=== PATIENT | female | born 1950 | race Caucasian/White ===

== ENCOUNTER → 2017-02-12 10:24 | Outpatient (CLI) | payer MEDICARE, OTHER, SELFPAY ==
[2017-02-12 11:01] LABS: Creatinine, Serum 0.64 mg/dL (0.55-1.02); EST Glomerular Filtration Rate 98 mL/min (>60); Est Glom Filt Rate - Afr Amer 118 mL/min (>60)
[2017-02-12 11:11] LABS: 24HR. UA Prot. Total Volume 3100 mL; Urine Protein (24 Hour) < 6.0 mg/dL (<11.9)
[2017-02-12 11:13] LABS: Creat.Clear Total Volume 3100 mL; Creatinine Clearance 101 ml/min (100-200); Creatinine Serum Creat 0.6 mg/dL (0.6-1.0); Creatinine Urine 30.1 mg/dL (NO RANGE EST.); EST Glomerular Filtration Rate 98 mL/min (>60); Est Glom Filt Rate - Afr Amer 118 mL/min (>60)
[2017-02-12 11:15] LABS: 24 Hour Urine Protein < 5.0 mg/24HR (<150 MG/24HR)
== END | disposition home or self-care (01) ==
DX: Z52.4 Kidney donor (principal)
CPT/HCPCS: 82565; 82575; 84156

== ENCOUNTER → 2018-01-05 13:23 | Outpatient (CLI) | payer OTHER, SELFPAY ==
--- NOTE | 2018-01-05 13:28 | MRI_ITS ---
STUDY: MRI RIGHT SHOULDER REASON FOR EXAM: Female, 67 years old. Fall on 09/12/2017. Shoulder pain. TECHNIQUE: Standardized fat and water weighted pulse sequences were obtained in all 3 orthogonal planes. COMPARISON: Right shoulder radiograph: 09/11/2017. FINDINGS: There is demonstrated a complete tear of the supraspinatus tendon with about 2 cm tendon retraction and with moderately large amount of edema fluid in the defect. There is infraspinatus tendinosis with tendon attrition, but without a demonstrated infraspinatus tendon tear. There is subscapularis tendinosis with tendon thickening, but without a demonstrated tendon tear. Normal teres minor tendon. There is a moderate volume joint effusion of the glenohumeral joint. There are cortical erosions and subchondral cysts of the humeral head at the insertion of the supraspinatus tendon. Normal biceps labral complex. There is tendinosis with thickening of the biceps tendon, but without a demonstrated tear. There is increased fluid in the biceps tendon sheath. Normal labrum. Normal rotator interval. 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 There is a Type II morphology (curved), with a neutral orientation. There is moderate fluid distention of the subacromial bursa, consistent with moderate subacromial-subdeltoid bursitis. Normal quadrilateral space. There is fluid in the axillary space There is mild deltoid muscular atrophy. There is mild trapezius muscular atrophy. MRI/Upper Ext Joint Only(Routine) IMPRESSION: 1. Complete supraspinatus tendon tear with muscle retraction. 2. Infraspinatus and subscapularis tendinosis. 3. Moderate volume joint effusion. 4. Possible biceps tendinosis with increased fluid of the tendon sheath. 5. 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 Electronically Signed: Alex Trujillo MD at 9:09 EDT Tel , Service support ,
== END ==
PROVIDERS: Family Provider Family Medicine; PCP Family Medicine; Visit Provider Orthopaedic Surgery
DX: S43.491D Other sprain of right shoulder joint, subsequent encounter (principal)
CPT/HCPCS: 73221

== ENCOUNTER 2018-02-16 07:00 | Day surgery (SDC) | payer MEDICARE, OTHER, SELFPAY ==
--- NOTE | 2018-02-16 | COLBX_PTH ---
PATIENT: PERLA PANTOJA LOC: EN U#:[id number] AGE/SX: 67/F ROOM: RE02/16/[address]: Dr. Kudleep Sung MD : 1950 BED: DIS: 02/16/2018 SPEC #: [id number] RECD: 02/16/18 10:49 STATUS: JAZLYN STONEAna Paula #: [id number] JOSÉ: 02/16/18 00:[address]: Kuldeep Sung DEPT: SURGICAL PATHOLOGY RECD BY: Aaron Mcgowan ENTERED: 02/16/18 12:49 SP TYPE: COLON BX OTHR DR: Dr. Sven Sung III, MD Tissues: Cecum, NOS Procedures: Surgery Specimen Level IV HEADER OPERATION: Colonoscopy PRE-OP DIAGNOSIS: Screening TISSUE SUBMITTED: Cecal polyp biopsy MICROSCOPIC DIAGNOSIS Cecal polyp, biopsy: Fragments of colonic mucosa, no pathologic diagnosis. SJ:curry 02/19/18 MICROSCOPIC DESCRIPTION Slides are reviewed. GROSS DESCRIPTION Received in fixative is one container labeled with the patient's name and designated cecal polyp. The specimen consists of three irregular fragments of light garcia soft tissue that in aggregate measure 0.7 x 0.3 x 0.1 cm. The specimen is totally submitted in one cassette. / AM:curry 02/16/18 TC:4 CPT: 22686
[2018-02-16 07:43] VITALS: BP 113/65; PULSE 79; RESP 14; TEMP 36.4; O2SAT 98; BMI 25.5
[2018-02-16 08:25] VITALS: BP 113/65; BP 130/85; PULSE 80; RESP 18; TEMP 36.8; O2SAT 99
--- NOTE | 2018-02-16 08:25 | PCM.OPRPT ---
Report of Operation Date of Procedure: 02/16/18 Pre-Operative Diagnosis: Screening for intestinal cancer Post-Operative Diagnosis: 6 mm sessile polyp of the cecum Surgery/Procedure Performed:: Colonoscopy with cold forcep polypectomy biopsy Description of Surgical Findings:: Timeout and informed consent was obtained. 67-year-old female was taken to the endoscopy suite. She was placed in a left lateral decubitus position. She underwent monitored anesthesia care. The patient was taken to the endoscopy room. She was placed in left lateral decubitus position. Monitored anesthesia care was provided. Digital rectal exam performed. Normal anal tone. Moderate internal hemorrhoids. The scope was advanced to a tortuous sigmoid colon was then advanced through the transverse colon and with transabdominal pressure to the cecum. Bowel prep was good there was some liquid stool throughout but that could be aspirated. A 6 mm sessile polyp the cecum was identified and cold forceps were used to sample and eradicate this lesion. Hemostasis was intact. The scope was carefully withdrawn from the ascending transverse descending and sigmoid colon. Tortuosity of the sigmoid was noted. Some scattered diverticulosis. No active disease. The scope was withdrawn to the rectum retroflex the anorectal verge inspected. Grade 2 internal hemorrhoidal changes noted. No active bleeding. The scope was placed back in antegrade viewing position. Excess fluid and air was aspirated free the procedure completed with the patient tolerating it well. Impression Small sessile polyp of the cecum. Pathology pending. Minimal scattered sigmoid diverticulosis with tortuosity of the sigmoid. Internal hemorrhoids The patient has not had a previous colonoscopy. Next colonoscopy recommended in 5 years pending pathology. Medications were given and scope was inserted at 0804. The cecum was reached at 0812. Procedure was completed at 0822. Cc: Dr. Sven Sung, III Kuldeep Sung M.D., F.A.C.S. Type of Anesthesia:: MAC
[2018-02-16 08:30] VITALS: BP 113/65; BP 124/81; PULSE 74; RESP 18; O2SAT 99
[2018-02-16 08:35] VITALS: BP 113/65; BP 128/87; PULSE 73; RESP 18; O2SAT 99
[2018-02-16 08:40] VITALS: BP 113/65; BP 138/85; PULSE 68; RESP 16; TEMP 35.7; O2SAT 100
[2018-02-16 09:22] VITALS: BP 113/65
== END 2018-02-16 09:23 | disposition home or self-care (01) ==
LOC: EN 07:01 → AC 07:02
PROVIDERS: Family Provider Family Medicine; PCP Family Medicine; Visit Provider Surgery
PROC: 0DJD8ZZ Inspection of Lower Intestinal Tract, Via Natural or Artificial Opening Endoscopic (ICD-10-PCS; CPT 45378; principal; 2018-02-16 07:55)
DX: Z12.11 Encounter for screening for malignant neoplasm of colon (principal); D12.0 Benign neoplasm of cecum; K57.30 Diverticulosis of large intestine without perforation or abscess without bleeding; K56.2 Volvulus; K64.1 Second degree hemorrhoids; K80.20 Calculus of gallbladder without cholecystitis without obstruction; Z79.82 Long term (current) use of aspirin
CPT/HCPCS: 45380; 88305; J7120

== ENCOUNTER 2018-02-19 07:53 | Day surgery (SDC) | payer MEDICARE, OTHER, SELFPAY ==
--- NOTE | 2018-02-16 07:20 | EKG12_ITS ---
Test Reason : PRE OP Blood Pressure : / mmHG Vent. Rate : 088 BPM Atrial Rate : 088 BPM P-R Int : 152 ms QRS Dur : 088 ms QT Int : 376 ms P-R-T Axes : 036 034 -03 degrees QTc Int : 454 ms Normal sinus rhythm ST & T wave abnormality, consider inferior ischemia Abnormal ECG When compared with ECG of 16-FEB-2018 07:34, MANUAL COMPARISON REQUIRED, DATA IS UNCONFIRMED Confirmed by MARSHALL JULIO ([id number]), script editor PREMA FLEMING ([id number]) on 02/20/2018 4:14:36 PM Referred By: Kuldeep Sung Confirmed By:MARSHALL JULIO
[2018-02-16 08:02] LABS: Hematocrit 40.8 % (37-47); Hemoglobin 13.8 g/dl (12.0-15.0); Mean Corp Hgb Conc 33.8 g/gl (32-36); Mean Corpuscular Hgb 29.4 pg (27.0-32.0); Mean Corpuscular Volume 86.8 fL (81-99); Mean Platelet Vol. 10.1 fl (6.2-12.0); Platelet Count 276 K/mm3 (150-450); RBC Distribution Width CV 12.8 % (11.6-14.6); RBC Distribution Width SD 39.5 fl (35.1-43.9); Scan Indicated on CBC? Y/N NO; White Blood Count 4.7 K/mm3 (4.4-11.0)
[2018-02-16 08:03] LABS: BUN 11 mg/dL (7-18); Creatinine, Serum 0.68 mg/dL (0.55-1.02); Glucose 92 mg/dL (74-106)
[2018-02-16 08:04] LABS: Anion Gap 10 (5-15); BUN/Creat Ratio 16.1 RATIO (10-20); Calcium,Total 8.8 mg/dL (8.5-10.1); Chloride 106 mmol/L (98-107); EST Glomerular Filtration Rate 91 mL/min (>60); Est Glom Filt Rate - Afr Amer 110 mL/min (>60); Potassium 3.5 mmol/L (3.5-5.1); Sodium Level 142 mmol/L (136-145)
[2018-02-19] VITALS (11 sets, daily range): BP systolic 82–135; BP diastolic 65–93; PULSE 66–88; RESP 16–18; TEMP 35.8–36.8; O2SAT 93–100; BMI 26.1
--- NOTE | 2018-02-19 | GALL_PTH ---
PATIENT: PERLA PANTOJA [place] [facility] [id number] AGE/SX: 67/F ROOM: RE02/19/[address]: Dr. Kuldeep Sung MD : 1950 BED: DIS: 02/19/2018 SPEC #: [id number] RECD: 02/19/18 14:02 STATUS: JAZLYN CANDY #: [id number] JOSÉ: 02/19/18 00:[address]: Kuldeep Sung DEPT: SURGICAL PATHOLOGY RECD BY: Erwin Fuentes ENTERED: 02/19/18 14:02 SP TYPE: VERENA SHEN DR: Dr. Sven Sung III, MD Tissues: Gallbladder, NOS Procedures: Surgery Specimen Level III HEADER OPERATION: Laparoscopic, cholecystectomy with IOC PRE-OP DIAGNOSIS: Calculus of gallbladder TISSUE SUBMITTED: Gallbladder MICROSCOPIC DIAGNOSIS Gallbladder: Mild chronic cholecystitis and cholelithiasis. SJ:curry 02/20/18 MICROSCOPIC DESCRIPTION Slides are reviewed. GROSS DESCRIPTION Received is one container labeled with the patient's name and designated gallbladder. The specimen consists of a gallbladder measuring 9 cm in length and up to 3 cm in diameter. The external surface is pink-garcia, smooth and glistening for the most part. Focally it is granular, hemorrhagic and contains cautery artifact. The gallbladder contains green-yellow mucoid bile and one irregular to ovoid block stone measuring 1.2 cm in greatest dimension. The mucosa is bile-stained and without any mass lesions. The gallbladder wall measures 0.1 to 0.3 cm in greatest dimension. Scrap Collector sections from the gallbladder and the cystic duct are submitted in one cassette. / SJ:rg 02/19/18 TC:3 CPT: 17884
[2018-02-19] MEDS: Clindamycin 900 MG/50 ML BAG 75 MG IV (08:46)
--- NOTE | 2018-02-19 08:58 | DCINST_ITS ---
Discharge Diet: Light diet - advance as tolerated - if you have questions about your diet instructions, please talk to you doctor. Discharge Activity: May Not Drive - for 1 week or while taking narcotic pain medicine. May shower in (days): 1 Lifting Restrictions: 10 pounds Call your doctor if your incision/area has: Continuous Slow Oozing, Sudden Increased Bleeding, Increased Pain/ Swelling, Increased Redness, Foul Smelling Discharge Call your doctor if you observe: Fever of 101 or Higher Suture Line Care: Avoid Pulling/Pushing, Avoid Pinching/Bending Additional Dressing/Incision Instructions:: Change or remove dressing in 4 days. Leave steri-strips in place for 1 week. Allergies/Adverse Reactions: Allergies Penicillins Allergy (Verified 01/29/18 14:10) Swelling Sulfa (Sulfonamide Antibiotics) Allergy (Verified 01/29/18 14:10) Swelling Medications to take at Discharge aspirin 81 mg tablet,delayed release 81 mg PO QDAY tab 01/22/18 [place] 37.5 mg PO DAILY 01/29/18 Calcium Carbonate [Calcium] 1,200 mg PO DAILY 01/29/18 Cholecalciferol (Vitamin D3) [Vitamin D3] 6,000 unit PO DAILY 01/29/18 L.acidoph,Paracasei, B.lactis [Probiotic] 1 each PO DAILY 01/29/18 Turmeric Root Extract [Turmeric] 1,053 mg PO DAILY 01/29/18 Hydrocodone Bitart/Apap 5-325 [[place] 5MG-325MG] 1 tablet PO Q6H PRN PRN 4 Days # 10 tablet 02/19/18 The following prescriptions were given: Hydrocodone Bitart/Apap 5-325 [[place] 5MG-325MG] 1 tablet PO Q6H PRN PRN 4 Days # 10 tablet PRN Reason: Pain Primary Care Physician: Sven Sung III, MD [Primary Care Provider] - Please Follow Up With: Kuldeep Sung MD - [phone] When: Call to make an appointment to be seen in about 10 days.
--- NOTE | 2018-02-19 09:30 | RAD_ITS ---
CLINICAL HISTORY: Female, 67 years old. Cholecystectomy PROCEDURE: CHOLANGIOGRAM - intraoperative CONSENT: Obtained SEDATION: General FLUOROSCOPY TIME (if supplied): (0:28) minutes/seconds Placement of the catheter and the procedure were performed by: Dr. Sung TECHNIQUE: (All elements of maximal sterile barrier technique followed, including US elements as applicable) The cystic duct remnant was cannulized. Contrast was then injected. There is normal flow of contrast from the cystic duct into the common bile duct which is normally distended. There is free flow of contrast into the duodenum. No obstruction or extravasation of contrast outside the biliary tree noted. RAD/Cholangiogram/ O R,Initial IMPRESSION: Normal intraoperative cholangiogram Electronically Signed: Baljeet Rodgers MD at 11:49 EDT , Service support ,
[2018-02-19] MEDS: Bupivacaine Mpf 0.5% 30 ML VIAL (10:25)
--- NOTE | 2018-02-19 10:26 | OP.PCM_ITS ---
Problem List (1) Cholelithiasis with chronic cholecystitis Status: Acute Qualifiers: Cholelithiasis location: gallbladder Biliary obstruction: without biliary obstruction Qualified Code(s): K80.10 - Calculus of gallbladder with chronic cholecystitis without obstruction Report of Operation Date of Procedure: 02/19/18 Pre-Operative Diagnosis: Chronic cholecystitis cholelithiasis Post-Operative Diagnosis: Same Surgery/Procedure Performed:: Laparoscopic cholecystectomy with cholangiography Description of Surgical Findings:: Timeout and informed consent was obtained. 67-year-old female was taken the operating room. She was placed on the table. She underwent general endotracheal intubation and anesthesia. Clindamycin 900 mg were given intravenously preoperatively. The abdomen was allowed to prepped and draped. 3 minutes of dry time was performed. 0.5% Marcaine was used as a local anesthetic. Throughout the procedure total 30 cc was used. Skin sites were pre -anesthetized. A vertical infraumbilical incision was created holding sutures of 0 Vicryl placed varies needle inserted saline drop test performed the abdomen was insufflated with CO2 to a pressure of 10 mmHg pressure 12 mm trocar inserted, laparoscope inserted no evidence any trocar injuries. The abdomen was superficially inspected. No evidence any superficial gross abnormalities other than the omentum was adherent to the gallbladder. 5 mm trochars were placed in the S epigastric mid abdomen right upper quadrant and verticalization. The gallbladder was partially distracted but then electrocautery hook dissection was required to free the omentum from the gallbladder. There was significant vascularity of the omentum and one area was treated with Hem-o-marion clips and in addition I placed a 0 Vicryl Endoloop to further assure hemostasis. Having done that the gallbladder could be further distracted allowing for blunt dissection at the infundibulum. The infundibular area was fully dissected free until the cystic artery and cystic duct identified. The critical view was achieved. The cystic artery was secured twice proximally once distally with Hem-o-marion clips prior to transecting it. A Hem-o-marion clip was placed on the fundus of the gallbladder incision made there in a clean interim catheter was inserted and secured with a Hem-o-marion clip. Fluoroscopically controlled cholangiograms were obtained. The patient was placed in a steep Trendelenburg position. Multiple different injections were performed. The cystic duct and the common bile duct very low. On one view I felt that I saw a flash of common bile duct Paxil. Despite repositioning and several different views I could not get the proper hepatic duct to fill. I did not want to put excess pressure on the syringe and potentially create pancreatitis. The anatomy was reviewed I felt was correcting this point I elected to proceed. The cholangiogram catheter was removed. A Hem-o-marion clip was placed on the cystic duct stump prior to transecting it. I now only had the gallbladder to dissect free. That was performed with electrocautery. Right at the dome of the liver however being immediately adjacent to the gallbladder immediately got into a superficial venous vessel of the liver. Electrocautery would not stop the flow. I used the gallbladder to provide pressure. We set up the argon beam. The argon beam was utilized and actually several different applications of the argon beam at a setting of 60 was required to obtain hemostasis. I felt that he had full hemostasis. The right upper quadrant was irrigated and aspirated free of excess fluid. Total blood loss likely 20 cc. This point I elected to place FloSeal and fibula are in the base of the liver resection. The gallbladder had been completely freed was in a retrieval bag. I removed the gallbladder and then we allowed the abdomen to deflate for 3 minutes. We reinflated the abdomen and again inspected the liver bed area was noted to be completely hemostatic. The gallbladder is now exited the umbilicus. The remaining trochars removed under visualization. The abdomen was allowed to deflate of CO2. The fascia at the umbilicus approximated interrupted 0 Vicryl figure 8 suture. Skin edges approximated with interrupted 4 Monocryl subdermal stitches. Steri-Strips Telfa and OpSite dressings applied. Sponge instrument and needle counts were reported to the surgeon to be correct. Blood loss 20 cc. She tolerated procedure well taken to the recovery area in sagittal condition without apparent complication. Specimens gallbladder. Drains none. Complications none. Kuldeep Sung M.D., F.A.C.S.
[2018-02-19] MEDS: proMETHazine 25 MG/ML Syringe 12.5 MG IV (10:50)
[2018-02-19] MEDS: HYDROcodone Bitartrate/Apap 5/325 Tablet PO (13:02)
== END 2018-02-19 14:57 | disposition home or self-care (01) ==
LOC: SDC 07:54 → AC 07:55
PROVIDERS: Family Provider Family Medicine; PCP Family Medicine; Visit Provider Surgery
PROC: (CPT 47610; principal; 2018-02-19 09:00)
DX: K80.10 Calculus of gallbladder with chronic cholecystitis without obstruction (principal); G25.81 Restless legs syndrome; Z86.2 Personal history of diseases of the blood and blood-forming organs and certain disorders involving the immune mechanism; Z78.0 Asymptomatic menopausal state; Z79.82 Long term (current) use of aspirin
CPT/HCPCS: 00790; 47563; 74300; 76000; 80048; 85027; 88304; 93005; J7120; J2405

== ENCOUNTER 2018-06-18 05:51 | Day surgery (SDC) | payer OTHER, MEDICARE, SELFPAY ==
[2018-06-18] VITALS (7 sets, daily range): BP systolic 126–140; BP diastolic 81–96; PULSE 64–74; RESP 16–18; TEMP 36.1–36.4; O2SAT 96–99; BMI 24.9
[2018-06-18] MEDS: Cefazolin 1 GM/50 ML BAG IV (07:33)
--- NOTE | 2018-06-18 09:09 | PCM.OP.BLANK ---
Operative Report Date of Procedure: 06/18/18 Preoperative diagnosis: Right shoulder rotator cuff tear, impingement syndrome, biceps tendinitis Postoperative diagnosis: Same Title of operation: Right shoulder diagnostic video arthroscopy, biceps tenotomy, arthroscopic subacromial decompression, arthroscopic rotator cuff repair Surgeon: Dr. Alcon Faustin Felt Hat Mellowing Machine Operator: Nita Oliveira PA-C Anesthesia: General, planned interscalene nerve block postoperatively Anesthesia provider Dr. Diamond Indications for surgery patient injured her shoulder at work. Diagnosed with rotator cuff tear, impingement, biceps tendinitis. She failed conservative measures. She wished to have right shoulder surgery. Findings: Patient had rotator cuff tear of the supraspinatus tendon. Approximately 70% of the biceps long head was torn. Also type II acromion. She underwent appropriate treatment. We used Arthrex speed bridge technique to repair the rotator cuff tendons. restaurant assistant was utilized throughout the entire procedure. Help with patient positioning, holding of the limb holding of retractors exposure throughout. She help with placement of anchors and sutures. She helped with wound closure bandage application, UltraSling application. Without neurosurgical physician assistant surgical time would have been increased, surgical outcome could have been less optimal Procedure: Patient was taken to the OR and transferred to the OR table. Neptali beachchair positioner was utilized. Appropriate timeouts performed. She was placed under general anesthetic. Ancef given preoperatively. CASSIDY hose and SCDs on the legs. Right shoulder and upper extremity were prepped padded draped in usual orthopedic sterile fashion for the procedure. We used lidocaine with epinephrine to anesthetize the subacromial space as well as proposed portals. Posterior portal was taken through skin with a knife. Dull trocar took us into the joint while the virtual customer assistant placed traction on the humeral head. We identified rotator cuff tear. We identified significant biceps tendinitis. Some arthritis. Some synovitis. Anterior portal was established with an inside out technique. We probed the biceps and found it nearly completely torn. We used a biter and shaver to perform a biceps tenotomy. We lightly debrided the shoulder joint. We entered the subacromial space after taking multiple pictures in the joint. Lateral portal thus established. We performed a acromioplasty by removing the tissue off the inferior aspect of the acromion with a shaver and ArthroCare wand. Bursal tissue was removed from about the region. Bur was used to perform an acromioplasty from the anterior lateral corner to the AC joint. Adequate bone was removed to create a flat, type I acromion from the anterior lateral corner to the AC joint. This was confirmed with pictures. We placed a hard cannula through the lateral portal. We used a shaver as well as ArthroCare wand to debride the bursal tissue as needed. We freshened the leading edge of the tendon with a shaver. We now having adequate visualization applied a suture anchor through an accessory superior portal x2 at the anterior and then posterior portion of the humeral head just off the articular cartilage with a fiber tape suture attached to each anchor. Ultimately a blue and white suture from each anchor was brought out the lateral portal, placed through a another swivel lock anchor and then down anterior into the more lateral humeral head region in line with the other implant. And we did this step repairing the tendon nicely to the bone. We could internally and externally rotate the shoulder showing a nice repair to the bone. No impingement was noted. Sutures were cut off given with the implants. Extra fluid was removed from the shoulder. Portals closed with simple sutures. Sterile bandage and UltraSling applied by the virtual customer assistant. Patient was awoken from her anesthetic transferred back to room bed in recovery room in satisfactory condition. Planned interscalene nerve block there. This note was generated with Vindicia dictation software. It may contain incorrect words, spelling, and punctuation that were not noted in checking the note before signing.
== END 2018-06-18 11:51 | disposition home or self-care (01) ==
LOC: SDC 05:52 → AC 05:53
PROVIDERS: Family Provider Family Medicine; PCP Family Medicine; Visit Provider Orthopaedic Surgery
PROC: (CPT 29827; principal; 2018-06-18 06:55)
DX: S46.011A Strain of muscle(s) and tendon(s) of the rotator cuff of right shoulder, initial encounter (principal); W18.39XA Other fall on same level, initial encounter; Y93.9 Activity, unspecified; Y92.9 Unspecified place or not applicable; Y99.0 Civilian activity done for income or pay; M75.41 Impingement syndrome of right shoulder; M75.21 Bicipital tendinitis, right shoulder; M81.0 Age-related osteoporosis without current pathological fracture; Z87.81 Personal history of (healed) traumatic fracture; Z79.891 Long term (current) use of opiate analgesic; Z79.899 Other long term (current) drug therapy
CPT/HCPCS: 29826; 29827; 29828; 64415; 93005; J7120; J2405

== ENCOUNTER → 2019-01-09 11:25 | Outpatient (CLI) | payer MEDICARE, OTHER, SELFPAY ==
--- NOTE | 2019-01-09 11:29 | BD_ITS ---
STUDY: DUAL ENERGY X-RAY ABSORPTIOMETRY / DXA REASON FOR EXAM: Female, 68 years old. The patient is postmenopausal. Loss of height. TECHNIQUE: Bone Mineral Density (BMD) measurements of lumbar spine and bilateral hips were obtained. COMPARISON: Comparison is made with prior study dated October 17, 2017. FINDINGS: Lumbar Spine (L1-L4): g/cm2 (0.811) / T-score (-3.2) / Z-score (-1.6) Findings are suggestive of osteoporosis with a high fracture risk. Left Femur Total: g/cm2 (0.740) / T-score (-2.1) / Z-score (-0.7) Left Femoral Neck: g/cm2 (0.688) / T-score (-2.5) / Z-score (-0.9) Right Femur Total: g/cm2 (0.728) / T-score (-2.2) / Z-score (-0.8) Right Femoral Neck: g/cm2 (0.705) / T-score (-2.4) / Z-score (-0.7) The T-Scores on the most recent prior examination were: Lumbar Spine (L1-L4): There has been worsening of bone density since the previous examination. Left Femur Total: which represents an improvement of 8.3%. Right Femur Total: which represents a worsening of 1.9%. BD/Dexa Bone Density Study IMPRESSION: The patient is considered osteoporotic as outlined below according to World Carlos Organization (WHO) criteria with a high fracture risk. There has been worsening of bone density since the previous examination. Reference Information: The T-score is the number of standard deviations above or below the standard which is normal for young adults at their peak bone mineral density. The World Health Organization (WHO) interprets the T-scores as follows: Above -1 Normal bone density Between -1 and -2.5 Osteopenia Equal to / or below -2.5 Osteoporosis As a practical clinical guideline, osteopenia may be graded as follows: Mild -1 through -1.5 Moderate -1.6 through -2.0 Severe -2.1 through -2.4 The Z-score is the number of standard deviations above or below age-matched controls. A Z-score of less than -1.5 would be considered abnormal. References: 1. NIH Osteoporosis and Related Bone Diseases http://www.osteo.org 2. International Society for Clinical Densitometry http://www.iscd.org 3. National Osteoporosis Foundation http://www.nof.org Electronically Signed: Dariusz Howard, at 10:49 EDT , Service support ,
--- NOTE | 2019-01-09 11:38 | BI_ITS ---
MAMMOGRAPHY - BILATERAL SCREENING 3-D KIMI SYNTHESIS REASON FOR EXAM: Female, 68 years old. Bilateral Screening 3-D tomosynthesis PERTINENT HISTORY: History of stereotactic biopsy in the . TECHNIQUE: 2-D mammograms and 3-D Kimi synthesis of the breast (s) were performed. CAD was performed. COMPARISON: October 17, 2017, August 05, 2015 FINDINGS: The breast composition is composed of scattered fibroglandular density. Scattered benign calcifications are stable. No dense spiculated masses or suspicious microcalcifications are identified. No architectural distortion is identified. There is no skin thickening or retraction. There has been no significant change since the prior study. BI/SCREENING MAMM (CAD), BILAT IMPRESSION: No mammographic signs of malignancy. Routine yearly mammograms recommended. ASSESSMENT CATEGORY: BIRADS Category 2: Benign. A letter regarding these results will be sent to the patient by the facility within 30 days. FOLLOW UP RECOMMENDATION: Yearly follow up mammogram recommended. (A) Approximately 10% of breast cancers are not detected by mammography. A normal mammogram should not delay biopsy of a clinically suspicious abnormality. Electronically Signed: Harsh Huertas MD at 13:04 EDT , Service support ,
== END ==
PROVIDERS: Family Provider Family Medicine; PCP Family Medicine; Referring Provider Obstetrics & Gynecology; Visit Provider Obstetrics & Gynecology
DX: M85.9 Disorder of bone density and structure, unspecified (principal); Z12.31 Encounter for screening mammogram for malignant neoplasm of breast
CPT/HCPCS: 77063; 77067; 77080

== ENCOUNTER → 2019-06-27 11:10 | Outpatient (CLI) | payer MEDICARE, OTHER, SELFPAY ==
[2019-06-27 12:42] LABS: Anion Gap 7 (5-15); BUN 12 mg/dL (7-18); BUN/Creat Ratio 17.4 RATIO (10-20); Calcium,Total 9.3 mg/dL (8.5-10.1); Chloride 104 mmol/L (98-107); Creatinine, Serum 0.69 mg/dL (0.55-1.02); EST Glomerular Filtration Rate 90 mL/min (>60); Est Glom Filt Rate - Afr Amer 108 mL/min (>60); Glucose 103 mg/dL (74-106); Potassium 3.4 mmol/L (3.5-5.1); Sodium Level 141 mmol/L (136-145)
== END ==
PROVIDERS: Family Provider Family Medicine; PCP Family Medicine; Visit Provider Nurse Practitioner Family
DX: I10 Essential (primary) hypertension (principal)
CPT/HCPCS: 36415; 80048

== ENCOUNTER → 2019-12-24 08:49 | Outpatient (CLI) | payer MEDICARE, OTHER, SELFPAY ==
[2019-11-29 14:26] VITALS: BMI 25.7
[2019-12-24 10:50] LABS: Absolute Lymphocyte Count 1.33 X10^3/uL (0.83-4.51); Absolute Neutrophil Count 2.2 X10^3/uL (2.0-7.7); Basophil# 0.03 X10^3/uL; Basophil% 0.7 % (0-1); Eosinophil# 0.15 X10^3/uL; Eosinophils% 3.5 % (0-5); Hematocrit 39.4 % (37-47); Hemoglobin 13.1 g/dL (12.0-15.0); Lymphocyte # 1.33 X10^3/ul (4.0); Lymphocyte % 31.1 % (19-41); Mean Corp Hgb Conc 33.2 g/dL (32-36); Mean Corpuscular Hgb 30.3 pg (27.0-32.0); Mean Corpuscular Volume 91.2 fL (81-99); Mean Platelet Vol. 10.1 fl (6.2-12.0); Monocyte# 0.52 X10^3/uL; Monocyte% 12.2 % (0-10); NRBC Flagged by Analyzer 0 % (0-5); Neutrophil # 2.23 X10^3/uL (2.7-7.7); Neutrophil % 52.3 % (47-70); Platelet Count 256 K/mm3 (150-450); RBC Distribution Width CV 12.7 % (11.6-14.6); RBC Distribution Width SD 42.1 fl (35.1-43.9); Red Blood Count 4.32 M/mm3 (4.2-5.4); White Blood Count 4.3 K/mm3 (4.4-11.0)
[2019-12-24 11:12] LABS: BUN 16 mg/dL (7-18); Creatinine, Serum 0.72 mg/dL (0.55-1.02); Glucose 99 mg/dL (74-106)
[2019-12-24 11:13] LABS: Anion Gap 4 (5-15); BUN/Creat Ratio 22.3 RATIO (10-20); Calcium,Total 9.8 mg/dL (8.5-10.1); Chloride 107 mmol/L (98-107); EST Glomerular Filtration Rate 85 mL/min (>60); Est Glom Filt Rate - Afr Amer 103 mL/min (>60); Potassium 3.4 mmol/L (3.5-5.1); Sodium Level 140 mmol/L (136-145); Thyroid Stim Hormone (TSH) 2.71 uIU/mL (0.358-3.74)
== END ==
PROVIDERS: PCP Family Medicine; Visit Provider Internal Medicine Cardiovascular Disease
DX: I10 Essential (primary) hypertension (principal); R55 Syncope and collapse
CPT/HCPCS: 36415; 80048; 83735; 84443; 85025

== ENCOUNTER → 2020-01-06 09:55 | Outpatient (CLI) | payer MEDICARE, OTHER, SELFPAY ==
[2019-11-29 14:26] VITALS: BMI 25.7
--- NOTE | 2020-01-06 09:56 | ECHOD_ITS ---
Reason For Study: Syncope Procedure This was a 2D Doppler, Color Flow transthoracic echocardiogram. Contrast injection was performed. Exam performed in department. Left Ventricle Normal LV size. Left ventricular systolic function is normal. The estimated ejection fraction is 60 %. No regional wall motion abnormalities noted. Right Ventricle Normal RV size. Normal systolic function. Atria Normal left atrium. Normal right atrium. Bubble contrast study negative for right to left interatrial shunt. Mitral Valve Normal mitral valve. Mild (1+) eccentric mitral valve insufficiency. Tricuspid Valve Normal tricuspid valve. Mild (1+) tricuspid valve insufficiency. Pulmonary artery systolic pressure is 30 mmHg. Aortic Valve Trisinus/trileaflet aortic valve. Mild (1+) aortic valve insufficiency. Pulmonic Valve Normal pulmonic valve. Great Vessels Normal aortic root. The pulmonary artery is normal size. Normal inferior vena cava. Pericardium/Pleural No pericardial effusion. Medication 22 gauge I.V. with prn adaptor inserted into right arm. Performed a rapid injection of agitated mix of 9 cc saline and 1cc air to assess for atrial septal defect. MMode/2D Measurements & Calculations LVIDd: 4.5 cm IVSd: 0.90 cm Ao root diam: 3.7 cm LVIDs: 2.9 cm LVPWd: 1.1 cm RVDd: 3.2 cm FS: 36.6 % LAV(MOD-bp): 47.9 ml LA A4 area: 15.6 cm2 RA A4 area: 13.3 cm2 LAV(MOD-bp) Indexed: 28.7 ml/m2 LAV(MOD-sp2): 60.3 ml LAV(MOD-sp4): 37.8 ml Time Measurements MV dec time: 0.27 sec Doppler Measurements & Calculations MV E max severo: 58.8 cm/sec Lat Peak E' Severo: 6.4 cm/sec Med Peak E' Severo: 5.2 cm/sec MV A max severo: 82.0 cm/sec E/E' lat: 9.2 E/E' med: 11.2 MV E/A: 0.72 MV V2 max: 88.6 cm/sec MV P1/2t max severo: 68.7 cm/sec Ao V2 max: 91.9 cm/sec MV max P.1 mmHg MV P1/2t: 73.2 msec Ao max P.4 mmHg MV V2 mean: 47.1 cm/sec MV dec slope: 274.7 cm/sec2 MV mean P.0 mmHg MV V2 VTI: 24.6 cm MVA(P1/2t): 3.0 cm2 LV V1 max: 85.7 cm/sec PA V2 max: 68.6 cm/sec TR max severo: 249.9 cm/sec LV V1 max P.9 mmHg TR max P.0 mmHg Interpretation Summary Normal LV size. Left ventricular systolic function is normal. The estimated ejection fraction is 60 %. Mild (1+) eccentric mitral valve insufficiency. Mild (1+) aortic valve insufficiency. Bubble contrast study negative for right to left interatrial shunt. Ordering Physician: Souleymane Moreno Referring Physician: Souleymane Moreno Performed By: Masoud Kelly RCS
== END ==
PROVIDERS: PCP Family Medicine; Referring Provider Internal Medicine Cardiovascular Disease; Visit Provider Internal Medicine Cardiovascular Disease
DX: R55 Syncope and collapse (principal)
CPT/HCPCS: 93306; A4216

== ENCOUNTER → 2020-04-20 12:55 | Outpatient (CLI) | payer MEDICARE, OTHER, SELFPAY ==
[2020-04-06 08:08] VITALS: BMI 25.7
--- NOTE | 2020-04-21 13:16 | PFT ---
INTRODUCTION: The patient is a 69-year-old female that presents for pulmonary function studies secondary to a diagnosis of shortness of breath. Respiratory therapy reports good patient effort. Bronchodilators were used during testing. INTERPRETATION: Forced expiration spirometry demonstrates no evidence of a large airways obstructive ventilatory defect. There was no significant response to aerosolized bronchodilators. Spirograms are of good quality and plateau normally. Body plethysmography was performed and reveals lung volumes to be within normal limits. Diffusing capacity by single breath CO is also within normal limits. IMPRESSION: Grossly normal pulmonary function studies.
== END ==
PROVIDERS: PCP Family Medicine; Referring Provider Nurse Practitioner Acute Care; Visit Provider Nurse Practitioner Acute Care
DX: R06.02 Shortness of breath (principal)
CPT/HCPCS: 94060; 94726; 94729

== ENCOUNTER → 2020-05-15 20:34 | Outpatient (CLI) | payer MEDICARE, OTHER, SELFPAY ==
[2019-11-29 14:26] VITALS: BMI 25.7
[2020-05-15] MEDS: Zolpidem Tartrate 5 MG Tablet PO (22:00)
== END ==
PROVIDERS: PCP Family Medicine; Visit Provider Nurse Practitioner Acute Care
DX: G47.33 Obstructive sleep apnea (adult) (pediatric) (principal)
CPT/HCPCS: 95810

== ENCOUNTER 2020-11-02 13:42 | Outpatient (RCR) | payer MEDICARE, OTHER, SELFPAY ==
[2020-07-29 09:50] VITALS: BMI 25.4
== END 2020-11-02 23:59 ==
LOC: IMMUN 13:42
PROVIDERS: PCP Family Medicine; Visit Provider Family Medicine
DX: Z23 Encounter for immunization (principal)
CPT/HCPCS: 0011A; 0012A; 91301

== ENCOUNTER → 2020-11-18 10:19 | Outpatient (CLI) | payer MEDICARE, OTHER, SELFPAY ==
[2020-11-18 07:28] VITALS: BMI 25.7
[2020-11-18 11:34] LABS: Absolute Lymphocyte Count 1.14 X10^3/uL (0.83-4.51); Absolute Neutrophil Count 2.2 X10^3/uL (2.0-7.7); Basophil# 0.04 X10^3/uL; Eosinophil# 0.09 X10^3/uL; Eosinophils% 2.3 % (0-5); Hemoglobin 13.2 g/dL (12.0-15.0); Lymphocyte # 1.14 X10^3/ul (4.0); Lymphocyte % 28.7 % (19-41); Mean Corpuscular Hgb 29.3 pg (27.0-32.0); Mean Corpuscular Volume 88.9 fL (81-99); Mean Platelet Vol. 10.6 fl (6.2-12.0); Monocyte# 0.46 X10^3/uL; Monocyte% 11.6 % (0-10); NRBC Flagged by Analyzer 0 % (0-5); Neutrophil # 2.23 X10^3/uL (2.7-7.7); Neutrophil % 56.1 % (47-70); Platelet Count 289 K/mm3 (150-450); RBC Distribution Width CV 12.4 % (11.6-14.6); RBC Distribution Width SD 40.3 fl (35.1-43.9)
[2020-11-18 12:54] LABS: AST(SGOT) 34 U/L (15-37); Alanine Aminotransfer ALT/SGPT 46 U/L (13-56); Albumin, Serum 3.7 g/dL (3.2-5.0); Alkaline Phosphatase 103 U/L (45-117); Anion Gap 6 (5-15); BUN 16 mg/dL (7-18); BUN/Creat Ratio 25.6 RATIO (10-20); Calcium,Total 8.5 mg/dL (8.5-10.1); Chloride 105 mmol/L (98-107); Cholesterol 183 mg/dL (200); Creatinine, Serum 0.62 mg/dL (0.55-1.02); EST Glomerular Filtration Rate 100 mL/min (>60); Est Glom Filt Rate - Afr Amer 121 mL/min (>60); Glucose 92 mg/dL (74-106); High Density Lipoprotein 58 mg/dL; Potassium 3.5 mmol/L (3.5-5.1); Protein, Total 6.7 g/dL (6.4-8.2); Sodium Level 139 mmol/L (136-145); Thyroid Stim Hormone (TSH) 1.18 uIU/mL (0.358-3.74); Triglycerides 82 mg/dL; Very Low Density Lipoprotein 16 mg/dL (5-40)
== END ==
PROVIDERS: PCP Family Medicine; Referring Provider Internal Medicine Cardiovascular Disease; Visit Provider Internal Medicine Cardiovascular Disease
DX: I10 Essential (primary) hypertension (principal); R06.02 Shortness of breath; R00.2 Palpitations
CPT/HCPCS: 36415; 80048; 80061; 80076; 84443; 85025

== ENCOUNTER 2021-01-27 06:20 | Day surgery (SDC) | payer MEDICARE, OTHER, SELFPAY ==
[2020-11-18 07:28] VITALS: BMI 25.7
--- NOTE | 2021-01-20 13:03 | EKG12_ITS ---
Test Reason : PREOP Blood Pressure : / mmHG Vent. Rate : 060 BPM Atrial Rate : 060 BPM P-R Int : 156 ms QRS Dur : 090 ms QT Int : 444 ms P-R-T Axes : 044 041 008 degrees QTc Int : 444 ms Normal sinus rhythm Normal ECG Confirmed by KIMMY MILLAN, ANGELICA ([id number]), makeup editor MIRA LIU ([id number]) on 01/21/2021 9:13:52 AM Referred By: Alcon Faustin Confirmed By:ANGELICA ONEAL MD
[2021-01-20 14:00] LABS: Anion Gap 3 (5-15); BUN 19 mg/dL (7-18); BUN/Creat Ratio 33.4 RATIO (10-20); Chloride 105 mmol/L (98-107); Creatinine, Serum 0.57 mg/dL (0.55-1.02); EST Glomerular Filtration Rate 111 mL/min (>60); Est Glom Filt Rate - Afr Amer 135 mL/min (>60); Glucose 88 mg/dL (74-106); Potassium 3.9 mmol/L (3.5-5.1); Sodium Level 138 mmol/L (136-145)
--- NOTE | 2021-01-22 11:22 | NURSING ---
PT HAS HAD BOTH MODERNA VACCINES, LAST DOSE 12/01/20
[2021-01-27] VITALS (9 sets, daily range): BP systolic 115–134; BP diastolic 74–84; PULSE 58–79; RESP 16; TEMP 36.1–36.9; O2SAT 94–100; BMI 26.2
[2021-01-27] MEDS: Lactated Ringers 1,000 ML 100 ML IV ×2 (07:06→08:45)
[2021-01-27] MEDS: Lidocaine 1% /Epi 1:100 (20ml) 20 ML Vial (07:40)
[2021-01-27] MEDS: Epinephrine (1 mg/ml) 1 MG/ML VIAL (07:40)
[2021-01-27] MEDS: morphine PF (epidural) 5 MG/10 ML Vial (08:02)
--- NOTE | 2021-01-27 08:06 | PCM.OP.PRO ---
Procedure Report Date of Procedure: 01/27/21 Preoperative diagnosis: Right knee medial meniscus tear, arthritis Postoperative diagnosis : Right knee complex tear posterior horn medial meniscus with mild arthritis Procedure: Diagnostic video arthroscopy, right knee, partial medial meniscectomy Surgeon: Dr. Alcon Faustin Anesthesia: General Dr. Chai CRNA as well Complications: None EBL: Less than 5 cc Indications for surgery: Patient is a 70-year-old female with a long-standing history of right knee pain. Patient failed adequate nonoperative treatment for the knee pain. MRI findings discussed with patient. Due to persistent symptoms they wish to proceed with knee arthroscopy. Also complained of lack of full knee flexion and did wish to have knee manipulated into more flexion intraoperatively Findings: Intraoperative findings were consistent with her preoperative history, physical, radiographic exam. Details of procedure: Patient was taken to the OR transfer to the OR table. Nonoperative limb was appropriately padded, CASSIDY hose and SCD applied. Patient was placed under the anesthetic agent. Operative knee was examined. It was placed in the full flexion without difficulty. no signs of infection. Operative upper thigh was well-padded and ultimately placed in a well-padded thigh guzmán. Operative lower extremity was prepped and draped in usual orthopedic sterile fashion for the procedure. Local anesthetic agent was sterilely injected into the proposed arthroscopic portals. Lateral portal was established with a knife. Took us through skin only. Dull trocar took us into the joint. The scope was placed through the lateral portal. Medial portal and ultimately established using a spinal needle followed by a knife through skin, followed by a dull trocar into the joint. Probe was placed to the medial portal. Patellofemoral joint: No significant arthritis was noted. Patella tracked nicely. No significant plica noted. Medial and lateral gutter: No loose bodies or pathology noted. Intercondylar notch: ACL appeared within normal limits. Nice resting tension. No loose bodies or cystic changes noted. Medial compartment: Chondral surfaces showed minimal degenerative changes. No full-thickness cartilage loss. There was a complex tear of the posterior horn of the right knee medial meniscus. This extended from the root to the midportion. Undersurface tearing as well. Pictures were taken. Partial medial meniscectomy was carried out with a forward biting basket as well as arthroscopic shaver. Stable meniscus segment was maintained Lateral compartment: Chondral surfaces are within normal limits. No obvious lateral meniscus tear noted, and compartment fully probed Posterior medial compartment: No loose bodies or pathology noted. Posterior lateral compartment: No loose bodies or pathology noted. Arthroscopic pictures were taken and saved throughout the procedure. Knee was drained of excess fluid. Arthroscopic instruments were removed. Arthroscopic portals closed with simple sutures of 4-0 nylon. Knee joint injected with a combination of local anesthetic and Duramorph. sterile bandage was applied. Patient was transferred to the room bed and recovery room in satisfactory condition. They will be discharged to home when stable, follow-up in the office in 7-10 days. Patient and the family understand discharge instructions, all of their questions answered. Aspirin 81 mg twice a day will be recommended for postoperative DVT prevention. No preoperative antibiotic was deemed necessary or used This note was generated with [employer] dictation software. It may contain incorrect words, spelling, and punctuation that were not noted in checking the note before signing.
== END 2021-01-27 10:40 | disposition home or self-care (01) ==
LOC: SDC 06:20 → AC 06:20
PROVIDERS: PCP Family Medicine; Referring Provider Orthopaedic Surgery; Visit Provider Orthopaedic Surgery
PROC: (CPT 29870; principal; 2021-01-27 07:10)
DX: S83.231A Complex tear of medial meniscus, current injury, right knee, initial encounter (principal); X58.XXXA Exposure to other specified factors, initial encounter; Y93.9 Activity, unspecified; Y92.9 Unspecified place or not applicable; Y99.9 Unspecified external cause status; M17.11 Unilateral primary osteoarthritis, right knee; I10 Essential (primary) hypertension; E66.3 Overweight; Z68.28 Body mass index [BMI] 28.0-28.9, adult; Z79.899 Other long term (current) drug therapy
CPT/HCPCS: 01400; 29881; 80048; 93005; J7120; J2405

== ENCOUNTER → 2021-07-14 11:29 | Outpatient (CLI) | payer MEDICARE, OTHER, SELFPAY ==
[2021-01-27 06:51] VITALS: BMI 26.2
--- NOTE | 2021-07-14 11:33 | BI_ITS ---
MAMMOGRAPHY - BILATERAL SCREENING REASON FOR EXAM: Female, 71 years old. Routine annual screening examination. PERTINENT HISTORY: Non-contributory. History of prior stereotactic breast biopsy. TECHNIQUE: Digital bilateral breast kimi (3D mammographic acquisition) in the CC and MLO projections. 2-D mediolateral oblique (MLO) and craniocaudad (CC) views of both breasts were obtained. CAD: Full Field Digital Mammography with Computer Added Detection was performed. COMPARISON: Comparison is made with prior study dated 01/09/2019 and 10/17/2017. FINDINGS: Breast Composition: The breasts are heterogeneously dense, which may obscure small masses. There are no dominant masses or suspicious calcifications. No other significant abnormalities are identified. There has been no significant change since the prior study. BI/SCRN MAMM (CAD)W/KIMI BILAT IMPRESSION: Stable bilateral screening mammogram. Yearly follow-up mammogram recommended. (A) ASSESSMENT CATEGORY: BIRADS Category 1: Negative. A letter regarding these results will be sent to the patient by the facility within 30 days. Approximately 10% of breast cancers are not detected by mammography. A normal mammogram should not delay biopsy of a clinically suspicious abnormality. [id number] Electronically Signed: Dariusz Howard MD at 12:35 EDT , Service support ,
--- NOTE | 2021-07-14 11:35 | BD_ITS ---
STUDY: DUAL ENERGY X-RAY ABSORPTIOMETRY / DXA REASON FOR EXAM: Female, 71 years old. M81.0 TECHNIQUE: Bone Mineral Density (BMD) measurements of lumbar spine and bilateral hips were obtained. COMPARISON: Comparison is made with prior examination dated 01/09/2019. FINDINGS: Lumbar Spine (L1-L4): g/cm2 (0.701) / T-score (-3.6) / Z-score (-1.3) Findings are suggestive of osteoporosis with a high fracture risk. Left Femur Total: g/cm2 (0.681) / T-score (-2.1) / Z-score (-0.5) Left Femoral Neck: g/cm2 (0.530) / T-score (-2.9) / Z-score (-1.0) Right Femur Total: g/cm2 (0.668) / T-score (-2.2) / Z-score (-0.6) Right Femoral Neck: g/cm2 (0.5-1) / T-score (-3.0) / Z-score (-1.0) The T-Scores on the most recent prior examination were: Lumbar Spine (L1-L4): There has been worsening of bone density since the previous examination. Left Femur Total: which represents a worsening of 0.2%. Right Femur Total: which represents a worsening of 0.3%. BD/Dexa Bone Density Study IMPRESSION: The patient is considered osteoporotic as outlined below according to World Carlos Organization (WHO) criteria with a high fracture risk. There has been worsening of bone density since the previous examination. Reference Information: The T-score is the number of standard deviations above or below the standard which is normal for young adults at their peak bone mineral density. The World Health Organization (WHO) interprets the T-scores as follows: Above -1 Normal bone density Between -1 and -2.5 Osteopenia Equal to / or below -2.5 Osteoporosis As a practical clinical guideline, osteopenia may be graded as follows: Mild -1 through -1.5 Moderate -1.6 through -2.0 Severe -2.1 through -2.4 The Z-score is the number of standard deviations above or below age-matched controls. A Z-score of less than -1.5 would be considered abnormal. References: 1. NIH Osteoporosis and Related Bone Diseases www osteo.org 2. International Society for Clinical Densitometry www iscd.org 3. National Osteoporosis Foundation www nof.org Electronically Signed: Dariusz Howard MD at 15:34 EDT , Service support ,
== END ==
PROVIDERS: PCP Family Medicine; Referring Provider Family Medicine; Visit Provider Family Medicine
DX: M81.0 Age-related osteoporosis without current pathological fracture (principal); Z12.31 Encounter for screening mammogram for malignant neoplasm of breast
CPT/HCPCS: 77063; 77067; 77080

== ENCOUNTER 2021-11-05 10:35 | Outpatient (CLI) | payer MEDICARE, OTHER, SELFPAY ==
[2021-11-05 11:01] VITALS: BP 134/82; PULSE 61; RESP 16; TEMP 36.6; O2SAT 100
[2021-11-05] MEDS: DENOSUMAB 60 MG/ML SC (11:03)
== END 2021-11-05 23:59 | disposition short-term general hospital (02) ==
LOC: MEDOUTP 10:35
PROVIDERS: PCP Family Medicine; Referring Provider Family Medicine; Visit Provider Family Medicine
DX: M81.0 Age-related osteoporosis without current pathological fracture (principal)
CPT/HCPCS: 96372; J0897

== ENCOUNTER → 2022-05-06 | Outpatient (CLI) | payer MEDICARE, OTHER, SELFPAY ==
[2022-05-06 10:38] VITALS: BP 139/78; PULSE 58; RESP 16; TEMP 35.7; O2SAT 99; BMI 23.0
[2022-05-06] MEDS: DENOSUMAB 60 MG/ML SC (10:41)
== END | disposition home or self-care (01) ==
LOC: MEDOUTP 10:31
PROVIDERS: PCP Family Medicine; Referring Provider Family Medicine; Visit Provider Family Medicine
DX: M81.0 Age-related osteoporosis without current pathological fracture (principal)
CPT/HCPCS: 96372; J0897

== ENCOUNTER → 2022-05-16 | Outpatient (CLI) | payer MEDICARE, OTHER, SELFPAY ==
[2022-05-16 13:49] LABS: Absolute Lymphocyte Count 1.16 X10^3/uL (0.83-4.51); Absolute Neutrophil Count 3.9 X10^3/uL (2.0-7.7); Basophil# 0.03 X10^3/uL; Basophil% 0.5 % (0-1); Eosinophil# 0.09 X10^3/uL; Eosinophils% 1.6 % (0-5); Hematocrit 41.4 % (37-47); Hemoglobin 13.5 g/dL (12.0-15.0); Lymphocyte # 1.16 X10^3/ul (0.83-4.51); Lymphocyte % 20.2 % (19-41); Mean Corp Hgb Conc 32.6 g/dL (32-36); Mean Corpuscular Hgb 30.4 pg (27.0-32.0); Mean Corpuscular Volume 93.2 fL (81-99); Monocyte# 0.55 X10^3/uL; Monocyte% 9.6 % (0-10); NRBC Flagged by Analyzer 0 % (0-5); Neutrophil # 3.89 X10^3/uL (2.7-7.7); Neutrophil % 67.8 % (47-70); Platelet Count 286 K/mm3 (150-450); RBC Distribution Width CV 12.9 % (11.6-14.6); RBC Distribution Width SD 43.9 fl (35.1-43.9); Red Blood Count 4.44 M/mm3 (4.2-5.4); White Blood Count 5.7 K/mm3 (4.4-11.0)
[2022-05-16 13:58] LABS: Hemoglobin A1c 5.3 % (3.8-5.6)
[2022-05-16 14:03] LABS: Vitamin D,25 Hydroxy 57.4 ng/mL
[2022-05-16 14:19] LABS: ALB/GLOB Ratio 1.2 RATIO (0.9-2.4); AST(SGOT) 22 U/L (15-37); Alanine Aminotransfer ALT/SGPT 28 U/L (13-56); Albumin, Serum 3.9 g/dL (3.2-5.0); Alkaline Phosphatase 88 U/L (45-117); Anion Gap 3 (5-15); BUN 14 mg/dL (7-18); BUN/Creat Ratio 22.3 RATIO (10-20); Calcium,Total 9.2 mg/dL (8.5-10.1); Chloride 106 mmol/L (98-107); Cholesterol 181 mg/dL (200); Creatinine, Serum 0.63 mg/dL (0.55-1.02); EST Glomerular Filtration Rate 99 mL/min (>60); Est Glom Filt Rate - Afr Amer 120 mL/min (>60); Globulin 3.2 g/dL (2.2-4.2); Glucose 97 mg/dL (74-106); High Density Lipoprotein 59 mg/dL; Potassium 3.6 mmol/L (3.5-5.1); Protein, Total 7.1 g/dL (6.4-8.2); Sodium Level 140 mmol/L (136-145); Triglycerides 88 mg/dL; Very Low Density Lipoprotein 18 mg/dL (5-40)
== END | disposition home or self-care (01) ==
LOC: LAB 13:05
PROVIDERS: PCP Family Medicine; Referring Provider Family Medicine; Visit Provider Family Medicine
DX: Z00.00 Encounter for general adult medical examination without abnormal findings (principal); E55.9 Vitamin D deficiency, unspecified; R73.02 Impaired glucose tolerance (oral)
CPT/HCPCS: 36415; 80053; 80061; 82306; 83036; 85025

== ENCOUNTER → 2022-07-19 | Outpatient (CLI) | payer MEDICARE, OTHER, SELFPAY ==
--- NOTE | 2022-07-19 10:37 | BI_ITS ---
MAMMOGRAPHY - BILATERAL SCREENING REASON FOR EXAM: Female, 72 years old. Routine annual screening examination. PERTINENT HISTORY: Non-contributory. History of prior stereotactic breast biopsy. TECHNIQUE: Digital bilateral breast kimi (3D mammographic acquisition) in the CC and MLO projections. 2-D mediolateral oblique (MLO) and craniocaudad (CC) views of both breasts were obtained. CAD: Full Field Digital Mammography with Computer Added Detection was performed. COMPARISON: Comparison is made with prior study dated 07/14/2021 and 01/09/2019. FINDINGS: Breast Composition: The breasts are heterogeneously dense, which may obscure small masses. There are no dominant masses or suspicious calcifications. No other significant abnormalities are identified. There has been no significant change since the prior study. BI/SCRN MAMM (CAD)W/KIMI BILAT IMPRESSION: Stable bilateral screening mammogram. Yearly follow-up mammogram recommended. (A) ASSESSMENT CATEGORY: BIRADS Category 1: Negative. A letter regarding these results will be sent to the patient by the facility within 30 days. Approximately 10% of breast cancers are not detected by mammography. A normal mammogram should not delay biopsy of a clinically suspicious abnormality. [id number] Electronically Signed: Dariusz Howard MD at 12:19 EDT ,
== END | disposition home or self-care (01) ==
PROVIDERS: PCP Family Medicine; Visit Provider Family Medicine
DX: Z12.31 Encounter for screening mammogram for malignant neoplasm of breast (principal)
CPT/HCPCS: 77063; 77067

== ENCOUNTER → 2022-08-15 | Outpatient (CLI) | payer MEDICARE, OTHER, SELFPAY ==
--- NOTE | 2022-08-15 13:28 | MRI_ITS ---
STUDY: MRI LEFT SHOULDER REASON FOR EXAM: Female, 72 years old. BURSITIS, left shoulder pain TECHNIQUE: Standardized fat and water weighted pulse sequences were obtained in all 3 orthogonal planes. COMPARISON: None. FINDINGS: A 1.17 cm full-thickness tear of the far anterior aspect of the supraspinous tendon is present at the greater tuberosity insertion site. Mild to moderate overlying subdeltoid bursal fluid is present. The more proximal fibers demonstrate mild tendinosis with thickening and edema. A small glenohumeral joint effusion is also present. Normal infraspinatus tendon. A split tear is present in the superior lateral fibers of the subscapularis tendon resulting in mild medial subluxation of the long head of biceps tendon into the torn fibers. Normal teres minor tendon. Normal supraspinatus muscle. There is mild muscular atrophy of the infraspinatus muscle. There is mild muscular atrophy of the subscapularis muscle. Normal teres minor muscle. Normal glenohumeral articulation. Normal humeral head and visualized proximal humerus. Normal biceps labral complex. Normal intracapsular long biceps tendon. Normal labrum. Normal capsulo- ligamentous complex. Normal rotator interval. Normal acromioclavicular articulation. There is a Type II morphology (curved), with a neutral orientation. There is no subacromial-subdeltoid bursal fluid. Normal visualized coracohumeral and coracoacromial ligaments. Normal quadrilateral space. Normal axillary space. Normal deltoid muscle. Normal trapezius muscle. MRI/Upper Ext Joint Only(Routine) IMPRESSION: 1. A 1.17 cm full-thickness tear of the far anterior aspect of the supraspinous tendon is present at the greater tuberosity insertion site. Mild to moderate overlying subdeltoid bursal fluid is present. The more proximal fibers demonstrate mild tendinosis with thickening and edema. A small glenohumeral joint effusion is also present. 2. A split tear is present in the superior lateral fibers of the subscapularis tendon resulting in mild medial subluxation of the long head of biceps tendon into the torn fibers. Electronically Signed: Eugene Hernandez MD at 14:50 EDT ,
== END | disposition home or self-care (01) ==
LOC: MRI 13:21
PROVIDERS: PCP Family Medicine; Referring Provider Orthopaedic Surgery; Visit Provider Orthopaedic Surgery
DX: M75.52 Bursitis of left shoulder (principal)
CPT/HCPCS: 73221

== ENCOUNTER → 2022-11-04 | Outpatient (CLI) | payer MEDICARE, OTHER, SELFPAY ==
[2022-11-04 10:50] VITALS: BP 151/87; RESP 16; TEMP 36.1; BMI 23.6
[2022-11-04] MEDS: DENOSUMAB 60 MG/ML SC (10:54)
== END | disposition home or self-care (01) ==
LOC: MEDOUTP 10:32
PROVIDERS: PCP Family Medicine; Referring Provider Family Medicine; Visit Provider Family Medicine
DX: M81.0 Age-related osteoporosis without current pathological fracture (principal)
CPT/HCPCS: 96372; J0897

== ENCOUNTER → 2022-11-11 | Outpatient (CLI) | payer MEDICARE, OTHER, SELFPAY ==
--- NOTE | 2022-11-29 10:03 | EKG12_ITS ---
Test Reason : PRE-OP Blood Pressure : / mmHG Vent. Rate : 058 BPM Atrial Rate : 058 BPM P-R Int : 134 ms QRS Dur : 090 ms QT Int : 434 ms P-R-T Axes : 031 046 022 degrees QTc Int : 426 ms Sinus bradycardia Otherwise normal ECG Confirmed by KIMMY MILLAN, ANGELICA ([id number]), business editor MIRA LIU ([id number]) on 11/30/2022 9:28:06 AM Referred By: HANDY FLEMING Confirmed By:ANGELICA ONEAL MD
[2022-11-29 11:21] LABS: Absolute Lymphocyte Count 1.05 X10^3/uL (0.83-4.51); Absolute Neutrophil Count 2.3 X10^3/uL (2.0-7.7); Basophil# 0.03 X10^3/uL; Basophil% 0.8 % (0-1); Eosinophil# 0.09 X10^3/uL; Eosinophils% 2.3 % (0-5); Hematocrit 39.2 % (37-47); Hemoglobin 12.9 g/dL (12.0-15.0); Lymphocyte # 1.05 X10^3/ul (0.83-4.51); Lymphocyte % 26.5 % (19-41); Mean Corp Hgb Conc 32.9 g/dL (32-36); Mean Corpuscular Hgb 29.1 pg (27.0-32.0); Mean Corpuscular Volume 88.5 fL (81-99); Mean Platelet Vol. 10.6 fl (6.2-12.0); Monocyte# 0.53 X10^3/uL; Monocyte% 13.4 % (0-10); NRBC Flagged by Analyzer 0 % (0-5); Neutrophil # 2.25 X10^3/uL (2.7-7.7); Neutrophil % 56.7 % (47-70); Platelet Count 252 K/mm3 (150-450); RBC Distribution Width CV 12.8 % (11.6-14.6); Red Blood Count 4.43 M/mm3 (4.2-5.4)
[2022-11-29 12:26] LABS: Anion Gap 6 (5-15); BUN 22 mg/dL (7-18); BUN/Creat Ratio 32.7 RATIO (10-20); Calcium,Total 8.8 mg/dL (8.5-10.1); Chloride 108 mmol/L (98-107); Creatinine, Serum 0.67 mg/dL (0.55-1.02); EST Glomerular Filtration Rate 91 mL/min (>60); Est Glom Filt Rate - Afr Amer 110 mL/min (>60); Glucose 102 mg/dL (74-106); Potassium 3.5 mmol/L (3.5-5.1); Sodium Level 142 mmol/L (136-145)
[2022-11-29 12:40] LABS: AST(SGOT) 32 U/L (15-37); Alanine Aminotransfer ALT/SGPT 38 U/L (13-56); Albumin, Serum 3.8 g/dL (3.2-5.0); Alkaline Phosphatase 87 U/L (45-117); Bilirubin, Direct 0.11 mg/dL (0.00-0.30); Cholesterol 174 mg/dL (200); Globulin 2.8 g/dL (2.2-4.2); High Density Lipoprotein 57 mg/dL; Protein, Total 6.6 g/dL (6.4-8.2); Triglycerides 90 mg/dL; Very Low Density Lipoprotein 18 mg/dL (5-40)
== END | disposition home or self-care (01) ==
LOC: PAT 12-05 13:45
PROVIDERS: Internal Medicine Cardiovascular Disease; PCP Family Medicine; Visit Provider Orthopaedic Surgery
DX: Z01.812 Encounter for preprocedural laboratory examination (principal); Z01.810 Encounter for preprocedural cardiovascular examination; Z11.59 Encounter for screening for other viral diseases
CPT/HCPCS: 36415; 80048; 80061; 80076; 85025; 87426; 93005; C9803

== ENCOUNTER 2023-05-05 10:35 | Outpatient (CLI) | payer MEDICARE, OTHER, SELFPAY ==
[2023-05-05 11:02] VITALS: BP 135/82; PULSE 57; RESP 16; O2SAT 97; BMI 23.7
[2023-05-05] MEDS: DENOSUMAB 60 MG/ML SC (11:07)
== END 2023-05-05 10:36 | disposition home or self-care (01) ==
LOC: MEDOUTP 10:36
PROVIDERS: PCP Family Medicine; Referring Provider Family Medicine; Visit Provider Family Medicine
DX: M81.0 Age-related osteoporosis without current pathological fracture (principal)
CPT/HCPCS: 96372; J0897

== ENCOUNTER → 2023-06-12 | Outpatient (CLI) | payer MEDICARE, OTHER, SELFPAY ==
[2023-06-12 16:08] LABS: Absolute Lymphocyte Count 1.23 X10^3/uL (0.83-4.51); Absolute Neutrophil Count 3.6 X10^3/uL (2.0-7.7); Basophil# 0.04 X10^3/uL; Basophil% 0.7 % (0-1); Eosinophil# 0.08 X10^3/uL; Eosinophils% 1.5 % (0-5); Hematocrit 41.1 % (37-47); Hemoglobin 13.2 g/dL (12.0-15.0); Lymphocyte # 1.23 X10^3/ul (0.83-4.51); Lymphocyte % 22.3 % (19-41); Mean Corp Hgb Conc 32.1 g/dL (32-36); Mean Corpuscular Hgb 29.1 pg (27.0-32.0); Mean Corpuscular Volume 90.7 fL (81-99); Mean Platelet Vol. 10.4 fl (6.2-12.0); Monocyte% 9.1 % (0-10); NRBC Flagged by Analyzer 0 % (0-5); Neutrophil # 3.64 X10^3/uL (2.7-7.7); Platelet Count 264 K/mm3 (150-450); RBC Distribution Width CV 12.6 % (11.6-14.6); RBC Distribution Width SD 41.5 fl (35.1-43.9); Red Blood Count 4.53 M/mm3 (4.2-5.4); White Blood Count 5.5 K/mm3 (4.4-11.0)
[2023-06-12 16:17] LABS: D-Dimer Quantitative (DVT/PE) 0.42 FEU/ug/m (0.27-0.49)
[2023-06-12 17:02] LABS: ALB/GLOB Ratio 1.4 RATIO (0.9-2.4); AST(SGOT) 31 U/L (15-37); Alanine Aminotransfer ALT/SGPT 43 U/L (13-56); Albumin, Serum 4.1 g/dL (3.2-5.0); Alkaline Phosphatase 87 U/L (45-117); Anion Gap 7 (5-15); BUN 11 mg/dL (7-18); BUN/Creat Ratio 16.4 RATIO (10-20); CRP, High Sensitivity Cardiac 5.93 mg/L; Calcium,Total 9.1 mg/dL (8.5-10.1); Chloride 107 mmol/L (98-107); Creatinine, Serum 0.67 mg/dL (0.55-1.02); EST Glomerular Filtration Rate 91 mL/min (>60); Est Glom Filt Rate - Afr Amer 111 mL/min (>60); Glucose 89 mg/dL (74-106); Potassium 3.3 mmol/L (3.5-5.1); Protein, Total 7.1 g/dL (6.4-8.2); Sodium Level 140 mmol/L (136-145); Thyroid Stim Hormone (TSH) 0.86 uIU/mL (0.358-3.74)
[2023-06-12 20:57] LABS: Insulin 4.1 mU/L (2.6-37.6); T3 Total - Triiodothyronine 0.93 ng/mL (0.6-1.81); Vitamin B12 537 pg/mL (211-911); Vitamin D,25 Hydroxy 73.9 ng/mL
[2023-06-14 13:08] LABS: Anti-Nuclear Antibody Test Positive (.)
[2023-06-19 02:07] LABS: EBV Acute VCA IgM < 36.0 U/mL (0.0-35.9); Lead, Blood Adult 16+yrs < 1.0 ug/dL (0.0-3.4); T3 Reverse 18.8 ng/dL (9.2-24.1)
== END | disposition home or self-care (01) ==
PROVIDERS: PCP Family Medicine
DX: M81.0 Age-related osteoporosis without current pathological fracture (principal); I47.1 Supraventricular tachycardia; E72.12 Methylenetetrahydrofolate reductase deficiency; J30.9 Allergic rhinitis, unspecified; G47.00 Insomnia, unspecified; E55.9 Vitamin D deficiency, unspecified; B34.9 Viral infection, unspecified; E03.9 Hypothyroidism, unspecified; E88.81 Metabolic syndrome and other insulin resistance; T56.0X4A Toxic effect of lead and its compounds, undetermined, initial encounter; T56 Toxic effect of metals
CPT/HCPCS: 36415; 80053; 82306; 82607; 83525; 83655; 84443; 84480; 84482; 85025; 85379; 86038; 86141; 86664; 86665

== ENCOUNTER → 2023-06-13 | Outpatient (CLI) | payer MEDICARE, OTHER, SELFPAY ==
[2023-06-15 05:07] LABS: CMV Antibody IgG > 10.00 U/mL (0.00-0.59)
== END | disposition home or self-care (01) ==
PROVIDERS: PCP Family Medicine
DX: M81.0 Age-related osteoporosis without current pathological fracture (principal); M32.0 Drug-induced systemic lupus erythematosus; I47.1 Supraventricular tachycardia; E72.12 Methylenetetrahydrofolate reductase deficiency; J30.9 Allergic rhinitis, unspecified; G47.00 Insomnia, unspecified; E55.9 Vitamin D deficiency, unspecified; B34.9 Viral infection, unspecified; E03.9 Hypothyroidism, unspecified; E88.81 Metabolic syndrome and other insulin resistance; T56.0X4A Toxic effect of lead and its compounds, undetermined, initial encounter; T56 Toxic effect of metals
CPT/HCPCS: 86644

== ENCOUNTER → 2023-08-01 | Outpatient (CLI) | payer MEDICARE, OTHER, SELFPAY ==
--- NOTE | 2023-08-01 10:01 | BD_ITS ---
STUDY: DUAL ENERGY X-RAY ABSORPTIOMETRY / DXA REASON FOR EXAM: Female, 73 years old. 733.00OsteoporosisBONE DENSITY REASON FOR EXAM TECHNIQUE: Bone Mineral Density (BMD) measurements of lumbar spine and bilateral hips were obtained. COMPARISON: Comparison is made with prior study dated July 14, 2021. FINDINGS: Lumbar Spine (L1-L4): g/cm2 (0.755) / T-score (-3.1) / Z-score (-0.7) Findings are suggestive of osteoporosis with a high fracture risk. Left Femur Total: g/cm2 (0.694) / T-score (-2.0) / Z-score (-0.3) Left Femoral Neck: g/cm2 (0.562) / T-score (-2.6) / Z-score (-0.6) Right Femur Total: g/cm2 (0.678) / T-score (-2.2) / Z-score (-0.4) Right Femoral Neck: g/cm2 (0.522) / T-score (-2.9) / Z-score (-0.9) The T-Scores on the most recent prior examination were: Lumbar Spine (L1-L4): There has been improvement of bone density since the previous examination. Left Femur Total: which represents an improvement of 2%. Right Femur Total: which represents an improvement of 1.5%. BD/Dexa Bone Density Study IMPRESSION: The patient is considered osteoporotic as outlined below according to World Carlos Organization (WHO) criteria with a high fracture risk. There has been improvement of bone density since the previous examination. Reference Information: The T-score is the number of standard deviations above or below the standard which is normal for young adults at their peak bone mineral density. The World Health Organization (WHO) interprets the T-scores as follows: Above -1 Normal bone density Between -1 and -2.5 Osteopenia Equal to / or below -2.5 Osteoporosis As a practical clinical guideline, osteopenia may be graded as follows: Mild -1 through -1.5 Moderate -1.6 through -2.0 Severe -2.1 through -2.4
== END | disposition home or self-care (01) ==
LOC: OPBD 09:54
PROVIDERS: PCP Family Medicine; Referring Provider Family Medicine; Visit Provider Family Medicine
DX: M81.0 Age-related osteoporosis without current pathological fracture (principal)
CPT/HCPCS: 77080

== ENCOUNTER → 2023-08-09 | Outpatient (CLI) | payer MEDICARE, OTHER, SELFPAY ==
[2023-08-09 14:30] LABS: Ferritin 228 ng/mL (8-252)
[2023-08-11 13:07] LABS: EBV Acute VCA IgM < 36.0 U/mL (0.0-35.9); Thyroid Peroxidase AB < 9 IU/mL (0-34)
== END | disposition home or self-care (01) ==
PROVIDERS: PCP Family Medicine
DX: E03.9 Hypothyroidism, unspecified (principal); B25.9 Cytomegaloviral disease, unspecified; B33.8 Other specified viral diseases
CPT/HCPCS: 36415; 82728; 86376; 86664; 86665

== ENCOUNTER → 2023-08-21 | Outpatient (CLI) | payer MEDICARE, OTHER, SELFPAY ==
[2023-08-29 00:07] LABS: T3 Reverse 17.2 ng/dL (9.2-24.1)
== END | disposition home or self-care (01) ==
PROVIDERS: PCP Family Medicine
DX: E83.119 Hemochromatosis, unspecified (principal); E03.9 Hypothyroidism, unspecified
CPT/HCPCS: 36415; 84480; 84482

== ENCOUNTER → 2023-08-25 | Outpatient (CLI) | payer MEDICARE, OTHER, SELFPAY | END | disposition home or self-care (01) | LOC: LAB 14:01 | PROVIDERS: PCP Family Medicine; Referring Provider Surgery; Visit Provider Surgery | DX: I10 Essential (primary) hypertension (principal) | CPT/HCPCS: 36415; 84132 ==

== ENCOUNTER → 2023-09-28 | Outpatient (CLI) | payer MEDICARE, OTHER, SELFPAY ==
[2023-09-28 15:53] LABS: Absolute Lymphocyte Count 1.04 X10^3/uL (0.83-4.51); Absolute Neutrophil Count 2.4 X10^3/uL (2.0-7.7); Basophil# 0.04 X10^3/uL; Eosinophil# 0.08 X10^3/uL; Eosinophils% 1.9 % (0-5); Hematocrit 34.9 % (37-47); Hemoglobin 11.1 g/dL (12.0-15.0); Lymphocyte # 1.04 X10^3/ul (0.83-4.51); Lymphocyte % 25.3 % (19-41); Mean Corp Hgb Conc 31.8 g/dL (32-36); Mean Corpuscular Hgb 29.9 pg (27.0-32.0); Mean Corpuscular Volume 94.1 fL (81-99); Mean Platelet Vol. 10.1 fl (6.2-12.0); Monocyte# 0.53 X10^3/uL; Monocyte% 12.9 % (0-10); NRBC Flagged by Analyzer 0 % (0-5); Neutrophil # 2.41 X10^3/uL (2.7-7.7); Neutrophil % 58.7 % (47-70); Platelet Count 282 K/mm3 (150-450); RBC Distribution Width CV 13.1 % (11.6-14.6); RBC Distribution Width SD 44.9 fl (35.1-43.9); Red Blood Count 3.71 M/mm3 (4.2-5.4); White Blood Count 4.1 K/mm3 (4.4-11.0)
[2023-09-28 16:09] LABS: Fibrinogen 378 mg/dl (203-444)
[2023-09-28 16:27] LABS: CRP, High Sensitivity Cardiac 6.24 mg/L
== END | disposition home or self-care (01) ==
LOC: LAB 14:04
PROVIDERS: PCP Family Medicine
DX: M32.9 Systemic lupus erythematosus, unspecified (principal); B34.9 Viral infection, unspecified; B33.8 Other specified viral diseases; R53.82 Chronic fatigue, unspecified; R76.9 Abnormal immunological finding in serum, unspecified
CPT/HCPCS: 36415; 85025; 85379; 85384; 86141

== ENCOUNTER 2023-10-03 05:23 | Day surgery (SDC) | payer MEDICARE, OTHER, SELFPAY ==
--- NOTE | 2023-10-03 05:49 | HP.PCM_ITS ---
History and Physical Date of Admission: 10/03/23 Chief Complaint: 5year c-scope Is patient in pain?: No Allergies nitrous oxide Allergy (Verified 08/25/23 13:22) OtherPenicillins Allergy (Verified 08/25/23 13:22) SwellingSulfa (Sulfonamide Antibiotics) Allergy (Verified 08/25/23 13:22) Swellinglisinopril Adverse Reaction (Verified 08/25/23 13:22) cough Medications L.acidoph, paracasei,B. lactis 10 billion cell capsule 1 ea PO DAILY 01/29/18 [History Confirmed 05/05/23] doxylamine succinate 25 mg tablet (Unisom (doxylamine)) 25 mg PO QHS PRN Sleep 11/29/19 [History Confirmed 05/05/23] multivit,mineral-folic acid 800 mcg-vit K 100 mcg-herbal no.289 tablet (Alive Once Daily Women 50 Plus) 1 tab PO DAILY 11/29/19 [History Confirmed 05/05/23] turmeric root extract 500 mg capsule 500 mg PO DAILY 12/06/21 [History Confirmed 05/05/23] Lactobacillus acidophilus 10 billion cell capsule (Probiotic) 10,000 mmu cells PO DAILY 11/11/22 [History Confirmed 05/05/23] boron 6 mg tablet 15 mg PO DAILY 11/11/22 [History Confirmed 05/05/23] calcium 166.75 mg-vit D3 166.75 unit-vit C-vit K2-minerals capsule (Bone Essentials) 1 tab PO TID 11/11/22 [History Confirmed 05/05/23] acetaminophen 325 mg tablet 325 mg PO ONCE PRN pain 01/20/23 [History Confirmed 08/25/23] cholecalciferol (vitamin D3) 50 mcg (2,000 unit) tablet 50 mcg PO BID 01/20/23 [History Confirmed 05/05/23] metoprolol succinate 50 mg tablet,extended release 24 hr (Toprol XL) 50 mg PO DAILY #90 tabs 01/30/23 [Rx Confirmed 08/25/23] denosumab 60 mg/mL subcutaneous syringe (Prolia) 60 mg subcut [id number] 08/25/23 [History Confirmed 08/25/23] potassium chloride 20 mEq tablet,extended release 20 meq PO BID 08/25/23 [History Confirmed 08/25/23] spironolactone 25 mg tablet 25 mg PO DAILY 08/25/23 [History Confirmed 08/25/23] PFSH Medical History Alcohol use Anxiety Arthritis Back pain Cardiology follow-up encounter Cholelithiasis with chronic cholecystitis Dietary restriction Essential (primary) hypertension History of echocardiogram History of irregular heartbeat History of PSVT (paroxysmal supraventricular tachycardia) History of steroid therapy Hx of bronchitis Injury of back Near syncope Non-smoker LON (obstructive sleep apnea) Osteoporosis Post-menopausal Rapid palpitations RLS (restless legs syndrome) Sleep paralysis Wears glasses Surgical History H/O repair of left rotator cuff (12/05/22) H/O shoulder surgery History of back injury History of cholecystectomy (01/2018) History of dental surgery History of wisdom tooth extraction Hx of knee surgery Previous section Family History Mother Heart disease Thyroid disorderFather Hypertension Severe aortic stenosisUncle Severe aortic stenosis Social History Smoking Status: Never smoker alcohol intake: current alcohol intake frequency: a few times a month Alcohol type: beer and hard liquor substance use type: does not use HPI HPI HPI: 73-year-old female presents to discuss a colonoscopy. Most recently on February 19, 2018 I assisted her withA laparoscopic cholecystectomy and cholangiograms. Prior to that on February 16, 2018 I did a screening colonoscopy and demonstrated a 6 mm sessile polyp in the cecum. Cold forceps were used for removal. Pathology suggested normal mucosa. Follow-up was recommended however. Dating back to January 20, 2023 Dr. Stephensonori cardiology evaluated the patient prior to her undergoing a blepharoplasty. She was having episodes of near syncope. Her diagnosis was history of paroxysmal supraventricular tachycardia and essential hypertension and hyperlipidemia. At that time she was felt stable to proceed with her plastic surgical procedure. Patient apparently May 2023 was noted to have some low potassium has been put on plan potassium replacement. Since her cholecystectomy she has had looser stools but she is able to manage that by taking a fiber supplement like Metamucil. ROS General General: Yes weight change and fatigue; No appetite, colon cancer, breast cancer or weakness HEENT HEENT: No difficulty swallowing, eye injury, eye surgery, swollen glands or hoarseness Endo Endocrine: No thyroid disease, diabetes mellitus, thyroid cancer, Hair loss, heat intolerance or cold intolerance Skin Skin: No rash or changing moles Musc Musculoskeletal: Yes back problems; No arthritis, rheumatoid arthritis, gout or joint pain Cardio Cardiovascular: Yes high blood pressure; No murmur, pacemaker, heart disease, atrial fibrillation, heart attack, heart stent, palpitations, shortness of breat with exertion or chest pain Psych Psychiatric: Yes anxiety; No depression or hearing voices Resp Respiratory: No shortness of breath, No sleep apnea, No cough, No COPD, No asthma, No emphysema and No wheezing Gastro Gastrointestinal: No abdominal pain, No nausea or vomiting, No diarrhea, No constipation, No blood in stool, No acid reflux, Yes hemorrhoids, No ulcers, No gallbladder problem and No black,tarry stools Nikos Hematologic: No blood thinners, No blood disorders, No bleeding, No anemia and No blood clots Neuro Neurologic: No system reviewed and no additional complaints, except as documented, No as per HPI, No abnormal gait, No abnormal hearing, No abnormal movements, No abnormal speech, No behavioral changes, No burning sensations, No confusion, No convulsions, No disequilibrium, No dizziness, No localized weakness, No frequent falls, No headache(s), No lack of coordination, No loss of vision, No memory loss, No numbness, No other visual disturbances, No radicular pain, No restless legs, No sensory deficit, No syncope, No tingling, No tremor(s), No weakness and No other Exam Const General: cooperative, healthy appearing, comfortable and no acute distress [facility] Head: normal to inspection Eyes General: appearance normal, both eyes and all related structures Neck Neck: normal visual inspection Chest Chest palpation & inspection: normal inspection of the chest Resp Effort & Inspection: normal respiratory effort Cardio Rate: regular rate Rhythm: regular rhythm GI Inspection: normal to inspection Palpation: soft and no hepatosplenomegaly Musc Cervical Spine: normal cervical lordosis Skin General: no rashes or lesions noted Neuro General: patient alert and patient awake Extrem General: no calf tenderness Psych Appearance: grossly normal Assessment and Plan Assessment and Plan (1) Personal history of colonic polyps: Status: Acute Plan: 73-year-old female with a personal history of suspected colon polyp on colonoscopy. Pathology was not eventful however follow-up is indeed indicated. If additional polyps are identified then appropriate treatment and follow-up will be scheduled. If no additional polyps are identifiedThen she may not require additional follow-up We will check the patient's potassium level today's we can assess as to whether her replacement is sufficient. I did mention to her that she could and should continue to use as needed fiber supplement to control her looser stools status postcholecystectomy. If this becomes ineffective then we could prescribe for her cholestyramine if needed. She will contact us if she needs to take this step. I appreciate the ongoing opportunity of assisting with her surgical care Copy: Dr. Elena Sung M.D., F.A.C.S. History and physical review. No acute changes. Kuldeep Sung M.D., F.A.C.S.
[2023-10-03 05:53] VITALS: BP 119/72; PULSE 66; RESP 18; TEMP 36.2; O2SAT 100; BMI 24.6
[2023-10-03] MEDS: Lactated Ringers 1,000 ML 15 ML IV (06:03)
[2023-10-03 06:55] VITALS: BP 109/68; BP 199/72; PULSE 66; RESP 16; TEMP 36.4; O2SAT 99
--- NOTE | 2023-10-03 06:57 | OP.COLON_ITS ---
Patient Name: Luz Elena Genao Procedure Date: 10/03/2023 6:21 AM Date of : 1950 Age: 73 Procedure: Colonoscopy Indications: High risk colon cancer surveillance: Personal history of colonic polyps Providers: Kuldeep Sung MD Medicines: See the Anesthesia note for documentation of the administered medications Patient Profile: Last Colonoscopy: January 2018. Complications: No immediate complications. Procedure: Pre-Anesthesia Assessment: - Prior to the procedure, a History and Physical was performed, and patient medications and allergies were reviewed. The patient's tolerance of previous anesthesia was also reviewed. The risks and benefits of the procedure and the sedation options and risks were discussed with the patient. All questions were answered, and informed consent was obtained. Prior Anticoagulants: The patient has taken no anticoagulant or antiplatelet agents. ASA Grade Assessment: II - A patient with mild systemic disease. After reviewing the risks and benefits, the patient was deemed in satisfactory condition to undergo the procedure. After I obtained informed consent, the scope was passed under direct vision. Throughout the procedure, the patient's blood pressure, pulse, and oxygen saturations were monitored continuously. The colonoscope was introduced through the anus and advanced to the cecum, identified by appendiceal orifice and ileocecal valve. The colonoscopy was somewhat difficult due to a tortuous colon. The patient tolerated the procedure well. The quality of the bowel preparation was excellent. The ileocecal valve and the appendiceal orifice were photographed. Scope In: 6:32:39 AM Scope Withdrawal Time 0 hours 6 minutes 27 seconds Scope Out: 6:50:11 AM Total Procedure Duration Time 0 hours 17 minutes 32 seconds Findings: The perianal and digital rectal examinations were normal. A few diverticula were found in the sigmoid colon. The left colon was moderately tortuous. Advancing the scope required changing the patient to a supine position. Impression: - Diverticulosis in the sigmoid colon. - Tortuous colon. - No specimens collected. Recommendation: - Discharge patient to home. - Resume previous diet. - Continue present medications. - Repeat colonoscopy is not recommended due to current age (66 years or older) for screening purposes. Procedure Code(s): --- Professional --- 04241, Colonoscopy, flexible; diagnostic, including collection of specimen(s) by brushing or washing, when performed (separate procedure) Diagnosis Code(s): --- Professional --- Z86.010, Personal history of colonic polyps K57.30, Diverticulosis of large intestine without perforation or abscess without bleeding Q43.8, Other specified congenital malformations of intestine CPT copyright 2021 [employer]. All rights reserved. The codes documented in this report are preliminary and upon visual communications instructor review may be revised to meet current compliance requirements. Kuldeep Sung MD 10/03/2023 6:56:06 AM This report has been signed electronically. Number of Addenda: 0 Note Initiated On: 10/03/2023 6:21 AM
--- NOTE | 2023-10-03 06:57 | OP.CCLET_ITS ---
10/03/2023 Elena Washington [address] [place] [address] Re : Colonoscopy procedure for Luz Elena Genao Dear Dr. Washington This procedure was performed on Tuesday, October 03, 2023. My impressions and recommendations are as follows: Impressions : - Diverticulosis in the sigmoid colon. - Tortuous colon. - No specimens collected. Recommendations : - Discharge patient to home. - Resume previous diet. - Continue present medications. - Repeat colonoscopy is not recommended due to current age (66 years or older) for screening purposes. My findings are described in the full procedure note, which is enclosed. If I can be of further assistance, please feel free to contact me at Doctor phone number(s): Work: . Sincerely, Kuldeep Sung MD 10/03/2023 6:56:06 AM This report has been signed electronically.
[2023-10-03 07:00] VITALS: BP 116/71; BP 199/72; PULSE 63; RESP 18; O2SAT 99
[2023-10-03 07:05] VITALS: BP 118/74; BP 199/72; PULSE 63; RESP 18; TEMP 36.2; O2SAT 98
[2023-10-03 07:46] VITALS: BP 199/72
== END 2023-10-03 07:47 | disposition home or self-care (01) ==
LOC: EN 05:23 → AC 05:24
PROVIDERS: PCP Family Medicine; Referring Provider Family Medicine; Visit Provider Surgery
PROC: 0DJD8ZZ Inspection of Lower Intestinal Tract, Via Natural or Artificial Opening Endoscopic (ICD-10-PCS; CPT 45378; principal; 2023-10-03 06:25)
DX: Z12.11 Encounter for screening for malignant neoplasm of colon (principal); Q43.8 Other specified congenital malformations of intestine; I10 Essential (primary) hypertension; E78.5 Hyperlipidemia, unspecified; Z90.49 Acquired absence of other specified parts of digestive tract; Z79.899 Other long term (current) drug therapy; Z86.010 Personal history of colon polyps
CPT/HCPCS: 45378; J7120; J2405

== ENCOUNTER 2023-11-10 10:58 | Outpatient (CLI) | payer MEDICARE, OTHER, SELFPAY ==
[2023-11-10 11:05] VITALS: BP 132/84; PULSE 68; RESP 16; TEMP 36.1; O2SAT 100
[2023-11-10] MEDS: DENOSUMAB 60 MG/ML SC (11:26)
--- OUTSIDE RECORDS SUMMARY | 2023-11-10 11:33 | XMS RPT_ITS | CCD ---
Author Name Unknown Address [address] [place] [address] [address] [place] [id number] Organization [facility] Care Team Providers Care Barrel Rifler Operator Name Role Phone KACIE HERNANDEZ Referring Unavailable ERICH DUARTE Primary Care Unavailable ERICH DUARTE Primary Care Unavailable Allergies Allergy Classification Reported Allergen(s) Allergy Type Date of Onset Reaction(s) Facility (1 source) Penicillins; Translations: [PENICILLINS] Propensity to adverse reactions to drug (disorder) 6 [facility] Repository (1 source) Sulfonamides (Antibiotic); Translations: [SULFA (SULFONAMIDE ANTIBIOTICS)] Propensity to adverse reactions to drug (disorder) 6 [facility] Repository Problems Problem Classification Problem Date Documented Da te Episodic/Chronic Other upper respiratory infections (1 source) Acute upper respiratory infection, unspecified; Translations: [URI, acute] Onset: 10-06-2022 Episodic Unclassified (1 source) Acute cough; Translations: [Acute cough] Onset: 10-06-2022 Results Test Name Value Interpretation Reference Range Facil ity Encounters Encounter Date Encounter Type Care Provider Facility Start: 10-06-2022 End: 10-06-2022 ambulatory ERICHPhill DUARTE Facility:[facility] Payers Date Payer Category Payer Unknown [id number] 2014 Medicare [id number] Progress note 10-06-2022 Note Date & Type Note Facility 10-06-2022 Note HNO ID: [id number] Author: Sofya John RT(R) Service: Radiology Author Type: Technologist Type: Progress Notes Filed: 10/06/2022 3:08 PM Note Text: Radiology Service Progress Note PATIENT NAME: Perla Genao DATE OF SERVICE: October 06, 2022 TIME: 3:00 PM PATIENT IDENTITY VERIFICATION COMPLETED USING TWO (2) IDENTIFIERS: Name and Date of confirmed by patient verbally. FALL SCREENING: Has the patient had 2 falls in the last year or 1 fall with injury or currently using an Ambulatory Assistive Device (Walker, Cane, Wheelchair, Crutches, etc.)? No PATIENT GENDER DATA: Female. status: : No status: NO. PATIENT RELEVANT IMPLANT DATA REVIEWED: Yes RADIOLOGY DEPARTMENT: General X-ray: Exam(s) Completed: Chest X-Ray PERIPHERAL IV DATA: Not applicable SIGNED BY: Sofya John RT(R) October 06, 2022 3:00 PM [facility] Influenza virus A and B RNA and SARS-CoV-2 (COVID-19) N gene panel LAMINE+probe (Resp) 10-06-2022 Note Date & Type Note Facility 10-06-2022 Influenza virus A and B RNA and SARS-CoV-2 (COVID-19) N gene panel LAMINE+probe (Resp) COVID 19 RESULT: SARS-CoV-2 (Agent of COVID-19) Not Detected by RT-PCR or equivalent method. dain [id number]_[employer] (CIRO)_EUA This test was developed and its performance characteristics determined by [facility]'s [facility] [place]. This test has been authorized by FDA under an Emergency Use Authorization (EUA). This test has been validated in accordance with the FDA's Guidance Document Policy for Diagnostics Testing in Laboratories Certified to Perform High Complexity Testing under CLIA prior to Emergency use Authorization for Coronavirus Disease 2019 during the Public Health Emergency issued on December 21, 2019. Test performed by [facility], [facility] [place], [address] [place] [address]. INFLUENZA A PCR: Negative for Influenza A by RT-PCR INFLUENZA B PCR: Negative for Influenza B by RT-PCR [facility] Progress note 10-06-2022 Note Date & Type Note Facility 10-06-2022 Note HNO ID: [id number] Author: Kacie Hernandez APRN.CIRCUIT DESIGN ENGINEER Service: ? Author Type: Nurse Practitioner Type: Progress Notes Filed: 10/06/2022 3:34 PM Note Text: This note was created using NoteWriter. Subjective Perla Genao is a 72 year old female. 72 year old female with PMH HTN presents with complaints of illness. Acute onset of symptoms 5 days ago +sore throat +cough +headache +body aches Feel so bad Denies SOB. Denies dyspnea. Denies abdominal pain. Denies N/V/D Endorses cough is keeping her up at night. Endorses she obtained her influenza vaccination. The history is provided by the patient. No language asst was used. Flu Like Symptoms This is a new problem. The current episode started in the past 7 days. The problem occurs constantly. The problem has been unchanged. Associated symptoms include chills, congestion, coughing, fatigue, headaches, myalgias, nausea and a sore throat. Pertinent negatives include no abdominal pain, anorexia, arthralgias, chest pain, diaphoresis, fever, neck pain, numbness, rash, swollen glands, urinary symptoms, vomiting or weakness. Nothing aggravates the symptoms. She has tried acetaminophen for the symptoms. The treatment provided mild relief. PAST MEDICAL HISTORY Diagnosis Date Supraspinatus tendon tear, right, subsequent encounter 05/28/2018 Vitamin D deficiency 07/22/2012 PAST SURGICAL HISTORY Procedure Laterality Date [facility]ROS[facility]/ROTATOR CUFF RPR Right 06/18/2018 [facility] Ramin DELIVERY ONLY 1982,1985 , low transverse [facility]LE[facility] OF Right 06/18/2018 Arthroscopic subacromial [id number] ALLERGIES Penicillins and Sulfa (Sulfonamide Antibiotics) MEDICATIONS metoprolol succinate ER (TOPROL XL) 50 mg 24 hr tablet turmeric root extract 500 mg cap Take by mouth. denosumab (PROLIA) 60 mg/mL Inject 60 mg subcutaneously one time only. CHOLECALCIFEROL, VITAMIN D3, ORAL Take 5,000 Int'l Units by mouth once daily. BORON ORAL Take by mouth once daily. benzonatate (TESSALON PERLES) 100 mg capsule Take 1 capsule by mouth three times daily as needed for cough. citalopram hydrobromide (CELEXA) 10 mg tablet Take 1 tablet by mouth once daily. (Patient not taking: Reported on 10/06/2022) albuterol HFA (PROVENTIL HFA, VENTOLIN HFA) 90 mcg/actuation inhaler Inhale 2 Puffs as instructed every 6 hours as needed for Wheezing/Shortness of Breath (and for cough) for up to 15 days. lisinopril (ZESTRIL, PRINIVIL) 20 mg tablet Take 1 tablet by mouth once daily. (Patient not taking: Reported on 10/06/2022) zolpidem (AMBIEN) 10 mg tab one tablet at bedtime as needed for sleep (Patient not taking: Reported on 09/23/2019 ) CALCIUM ORAL Take by mouth as directed. (Patient not taking: Reported on 10/06/2022) Cholecalciferol, Vitamin D3, 2,000 unit cap Take 2 tablets by mouth once daily. (Patient not taking: Reported on 10/25/2019 ) FAMILY HISTORY Problem Relation Age of Onset Heart Mother cardiomyopathy, ICD/pacer Thyroid Mother Hypothyroidism Hypertension Mother Hypertension Father COPD Father Social History Tobacco Use Smoking status: Never Smokeless tobacco: Never Vaping Use Vaping Use: Never used Substance Use Topics Alcohol use: Yes Comment: rare Drug use: No Review of Systems Constitutional: Positive for chills and fatigue. Negative for diaphoresis and fever. HENT: Positive for congestion, sinus pressure, sinus pain and sore throat. Eyes: Negative for pain, discharge, redness and itching. Respiratory: Positive for cough. Negative for apnea, choking and chest tightness. Cardiovascular: Negative for chest pain, palpitations and leg swelling. Gastrointestinal: Positive for nausea. Negative for abdominal pain, anorexia, diarrhea and vomiting. Musculoskeletal: Positive for myalgias. Negative for arthralgias and neck pain. Skin: Negative for color change, pallor and rash. Allergic/Immunologic: Negative for environmental allergies, food allergies and immunocompromised state. Neurological: Positive for headaches. Negative for dizziness, facial asymmetry, weakness and numbness. Hematological: Negative for adenopathy. Does not bruise/bleed easily. Psychiatric/Behavioral: Negative for agitation and behavioral problems. Objective BP 146/86 Pulse 82 Temp 37.7 ?C (99.8 ?F) (Tympanic) Resp 18 Wt 61.6 kg (135 lb 12.8 oz) SpO2 98% BMI 23.13 kg/m? Physical Exam Vitals and nursing note reviewed. Constitutional: General: She is not in acute distress. Appearance: Normal appearance. She is normal weight. She is not ill-appearing, toxic-appearing or diaphoretic. HENT: Head: Normocephalic and atraumatic. Right Ear: Ear canal and external ear normal. Left Ear: Ear canal and external ear normal. Nose: Nose normal. No conges (more content not included)... [facility] Summary Purpose Family History No Family History Records Found Advance Directives No Advanced Directives Records Found Additional Source Comments INFORMATION SOURCE (unrecogn ized section and content) FOR RECORDS PERTAINING TO PATIENTS WHO ARE OR HAVE BEEN ENROLLED IN A CHEMICAL DEPENDENCY/SUBSTANCEABUSE PROGRAM, SOME INFORMATION MAY BE OMITTED. This clinical summary was aggregated from multiple sources. Caution should be exercised in using it in the provision of clinical care. This summary normalizes information from multiple sources, and as a consequence, information in this document may materially change the coding, format and clinical context of patient data. In addition, data may be omitted in some cases. CLINICAL DECISIONS SHOULD BE BASED ON THE PRIMARY CLINICAL RECORDS. [employer] provides no warranty or guarantee of the accuracy or completeness of information in this document.
== END 2023-11-10 10:59 | disposition home or self-care (01) ==
LOC: MEDOUTP 11:00
PROVIDERS: PCP Family Medicine; Referring Provider Family Medicine; Visit Provider Family Medicine
DX: M81.0 Age-related osteoporosis without current pathological fracture (principal)
CPT/HCPCS: 96372; J0897

== ENCOUNTER → 2023-12-08 | Outpatient (CLI) | payer MEDICARE, OTHER, SELFPAY ==
--- OUTSIDE RECORDS SUMMARY | 2023-12-08 11:34 | XMS RPT_ITS | CCD ---
Author Name Unknown Address [address] [place] [address] [address] [place] [id number] Organization [facility] Care Team Providers Care [employer] Installer Name Role Phone KACIE HERNANDEZ Referring Unavailable ERICH DUARTE Primary Care Unavailable ERICH DUARTE Primary Care Unavailable Allergies Allergy Classification Reported Allergen(s) Allergy Type Date of Onset Reaction(s) Facility (1 source) Penicillins; Translations: [PENICILLINS] Propensity to adverse reactions to drug (disorder) 6 [facility] Repository (1 source) Sulfonamides (Antibiotic); Translations: [SULFA (SULFONAMIDE ANTIBIOTICS)] Propensity to adverse reactions to drug (disorder) 6 [facility] Repository Problems Problem Classification Problem Date Documented Da te Episodic/Chronic Other upper respiratory infections (1 source) Acute upper respiratory infection, unspecified; Translations: [URI, acute] Onset: 10-06-2022 Episodic Unclassified (1 source) Acute cough; Translations: [Acute cough] Onset: 10-06-2022 Results Test Name Value Interpretation Reference Range Facil ity Encounters Encounter Date Encounter Type Care Provider Facility Start: 10-06-2022 End: 10-06-2022 ambulatory ERICHPhill DUARTE Facility:[facility] Payers Date Payer Category Payer Unknown [id number] 2014 Medicare [id number] Progress note 10-06-2022 Note Date & Type Note Facility 10-06-2022 Note HNO ID: [id number] Author: Sofya John RT(R) Service: Radiology Author [...] John RT(R) October 06, 2022 3:00 PM [facility] Influenza virus A and B RNA and SARS-CoV-2 (COVID-19) N gene panel LAMINE+probe (Resp) 10-06-2022 Note Date & Type Note Facility 10-06-2022 Influenza virus A and B RNA and SARS-CoV-2 (COVID-19) N gene panel LAMINE+probe (Resp) COVID 19 RESULT: SARS-CoV-2 (Agent of COVID-19) Not Detected by RT-PCR or equivalent method. dain [id number] (CIRO)_EUA This test was developed and its performance characteristics determined by [facility] [place]. This test has been authorized by FDA under an Emergency Use Authorization (EUA). This test has been validated in accordance with the FDA's Guidance Document Policy for Diagnostics Testing in Laboratories Certified to Perform High Complexity Testing under CLIA prior to Emergency use Authorization for Coronavirus Disease 2019 during the Public Health Emergency issued on December 21, 2019. Test performed by [facility], [facility] [place], [address] [place] [address]. INFLUENZA A PCR: Negative for Influenza A by RT-PCR INFLUENZA B PCR: Negative for Influenza B by RT-PCR [facility] Progress note 10-06-2022 Note Date & Type Note Facility 10-06-2022 Note HNO ID: [id number] Author: Kacie Hernandez APRN.[employer] OPERATOR Service: ? Author Type: Nurse Practitioner Type: [...] is provided by the patient. No language therapist was used. Flu Like Symptoms This is [...] Laterality Date ARTHROSCOPY B[facility]PS [facility]/ROTATOR CUFF RPR Right [facility]/18/2018 [facility],1985 , low transverse [facility]LE[facility] SURGICAL HISTORY OF Right 06/18/2018 Arthroscopic subacromial ceiyriyhxkaej-ZKW-Sssetv ALLERGIES Penicillins and Sulfa (Sulfonamide Antibiotics) MEDICATIONS [...] normal. No conges (more content not included)... [facility] Summary Purpose Family History No Family History [...] BE BASED ON THE PRIMARY CLINICAL RECORDS. [employer] provides no warranty or guarantee of the accuracy or completeness of information in this document.
[2023-12-08 11:55] LABS: Absolute Lymphocyte Count 1.15 X10^3/uL (0.83-4.51); Absolute Neutrophil Count 2.4 X10^3/uL (2.0-7.7); Basophil# 0.04 X10^3/uL; Basophil% 0.9 % (0-1); Eosinophil# 0.12 X10^3/uL; Eosinophils% 2.8 % (0-5); Hematocrit 37.8 % (37-47); Hemoglobin 12.2 g/dL (12.0-15.0); Lymphocyte # 1.15 X10^3/ul (0.83-4.51); Lymphocyte % 26.9 % (19-41); Mean Corp Hgb Conc 32.3 g/dL (32-36); Mean Corpuscular Hgb 30.4 pg (27.0-32.0); Mean Corpuscular Volume 94.3 fL (81-99); Mean Platelet Vol. 9.8 fl (6.2-12.0); Monocyte# 0.51 X10^3/uL; Monocyte% 11.9 % (0-10); NRBC Flagged by Analyzer 0 % (0-5); Neutrophil # 2.44 X10^3/uL (2.7-7.7); Neutrophil % 57.3 % (47-70); Platelet Count 256 K/mm3 (150-450); RBC Distribution Width CV 12.1 % (11.6-14.6); RBC Distribution Width SD 42.3 fl (35.1-43.9); Red Blood Count 4.01 M/mm3 (4.2-5.4); White Blood Count 4.3 K/mm3 (4.4-11.0)
[2023-12-08 12:26] LABS: ALB/GLOB Ratio 1.3 RATIO (0.9-2.4); AST(SGOT) 38 U/L (15-37); Alanine Aminotransfer ALT/SGPT 65 U/L (13-56); Albumin, Serum 3.9 g/dL (3.2-5.0); Alkaline Phosphatase 87 U/L (45-117); Anion Gap 2 (5-15); BUN 17 mg/dL (7-18); BUN/Creat Ratio 21.3 RATIO (10-20); Bilirubin, Direct 0.11 mg/dL (0.00-0.30); CRP, High Sensitivity Cardiac 4.99 mg/L; Calcium,Total 8.8 mg/dL (8.5-10.1); Chloride 108 mmol/L (98-107); Cholesterol 205 mg/dL (200); EST Glomerular Filtration Rate 75 mL/min (>60); Est Glom Filt Rate - Afr Amer 90 mL/min (>60); Ferritin 165 ng/mL (8-252); Glucose 92 mg/dL (74-106); High Density Lipoprotein 62 mg/dL; Iron 88 ug/dL (50-170); Potassium 4.1 mmol/L (3.5-5.1); Protein, Total 6.9 g/dL (6.4-8.2); Sodium Level 139 mmol/L (136-145); Triglycerides 78 mg/dL; Very Low Density Lipoprotein 16 mg/dL (5-40)
[2023-12-11 13:07] LABS: ANTINUCLEAR ANTIBODIES DIRECT Negative (Negative)
== END | disposition home or self-care (01) ==
LOC: LAB 11:17
PROVIDERS: Internal Medicine Cardiovascular Disease; PCP Family Medicine; Referring Provider Family Medicine; Visit Provider Family Medicine
DX: Z51.81 Encounter for therapeutic drug level monitoring (principal); D64.9 Anemia, unspecified; M25.50 Pain in unspecified joint; E78.00 Pure hypercholesterolemia, unspecified
CPT/HCPCS: 80053; 80061; 82248; 82728; 83540; 85025; 86038; 86141

== ENCOUNTER → 2024-01-03 | Outpatient (CLI) | payer SELFPAY, MEDICARE, OTHER ==
--- NOTE | 2024-01-03 13:45 | CT_ITS ---
STUDY: CT CHEST WITHOUT CONTRAST REASON FOR EXAM: Female, 73 years old. CALCIUM SCORE. Chest over read examination. RADIATION DOSAGE (If Supplied By Facility): CTDIvol = ( 12.19 ) mGy, DLP = ( 243.79 ) mGycm TECHNIQUE: Transaxial imaging was performed without the administration of intravenous contrast material. Individualized dose optimization techniques were used for this CT. COMPARISON: No relevant priors. FINDINGS: CHEST Mild increased markings at the lung bases suggests mild scarring. There is no demonstrated pleural abnormality. Normal heart and pericardium. No coronary artery calcification is seen. Normal mediastinum. Normal hilar regions. Normal unenhanced pulmonary arteries. Normal aorta arch and descending thoracic aorta. There are degenerative changes of the thoracic spine. Mild nodular enlargement of the left adrenal gland suggestive of a small adenoma. CT/Limited Chest CT Cardiac Only IMPRESSION: No coronary artery calcification is seen. Electronically Signed: Dariusz Howard MD at 14:35 EDT ,
--- NOTE | 2024-01-03 14:39 | CA.SCORE ---
Calcium Scoring Date of Study:: 01/03/24 Indications Indications: Family History Coronary Calcium Scoring: High-resolution Computed Tomographic imaging of the chest was performed on [ 01/03/24], with particular attention paid to the coronary arteries. Images from the examination were analyzed for the presence and extent of coronary artery calcification , using coronary calcium quantification software. The patient tolerated the procedure well and there were no complications. The results of the coronary calcification analysis are provided below. Findings Coronary Artery Left Main (LM): 0 Left Anterior Descending (LAD): 0 Left Circumflex (LCX): 0 Right Coronary Artery (RCA): 0 Total Agatston Score: 0 Percentile Rankin% Calcium Scoring Interpretation: Different methods to categorize the overall amount of coronary plaque. Overall amount CAC SIS Visual of coronary plaque P1 Mild -100 <2 1-2 vessels with mild amount of plaque P2 Moderate 101-300 3-4 1-2 vessels with moderate amount, 3 vessels with mild amount of plaque P3 Severe 301-999 5-7 3 vessels with moderate amount, 1 vessel with severe amount of plaque P4 Extensive >1000 >8 2-3 vessels with severe amount of plaque Conclusion: No atherosclerotic plaquing noted.
== END | disposition home or self-care (01) ==
LOC: CT 13:29
PROVIDERS: PCP Family Medicine; Referring Provider Family Medicine; Visit Provider Family Medicine
DX: R79.82 Elevated C-reactive protein (CRP) (principal); Z82.49 Family history of ischemic heart disease and other diseases of the circulatory system
CPT/HCPCS: 75571; 76380

== ENCOUNTER → 2024-02-29 | Outpatient (CLI) | payer MEDICARE, OTHER, SELFPAY ==
[2024-02-29 10:34] LABS: ALB/GLOB Ratio 1.3 RATIO (0.9-2.4); AST(SGOT) 30 U/L (15-37); Alanine Aminotransfer ALT/SGPT 41 U/L (13-56); Albumin, Serum 3.9 g/dL (3.2-5.0); Alkaline Phosphatase 82 U/L (45-117); Anion Gap 3 (5-15); BUN 16 mg/dL (7-18); BUN/Creat Ratio 23.7 RATIO (10-20); Calcium,Total 9.4 mg/dL (8.5-10.1); Chloride 109 mmol/L (98-107); Creatinine, Serum 0.68 mg/dL (0.55-1.02); EST Glomerular Filtration Rate 91 mL/min (>60); Est Glom Filt Rate - Afr Amer 110 mL/min (>60); Globulin 3.1 g/dL (2.2-4.2); Glucose 125 mg/dL (74-106); Potassium 3.7 mmol/L (3.5-5.1); Sodium Level 139 mmol/L (136-145)
[2024-03-07 09:10] LABS: Dopamine, Pl <30 pg/mL (0-48); Epinephrine, Pl 39 pg/mL (0-62); Norepinephrine, Pl 241 pg/mL (0-874)
== END | disposition home or self-care (01) ==
PROVIDERS: PCP Family Medicine; Referring Provider Family Medicine; Visit Provider Family Medicine
DX: D49.7 Neoplasm of unspecified behavior of endocrine glands and other parts of nervous system (principal); R74.8 Abnormal levels of other serum enzymes
CPT/HCPCS: 36415; 80053; 82384; 82533

== ENCOUNTER → 2024-03-01 | Outpatient (CLI) | payer MEDICARE, OTHER, SELFPAY ==
[2024-03-06 15:08] LABS: Dopamine, 24Ur 124 ug/24 hr (0-510); Dopamine, UR 71 ug/L (Undefined); Epinephrine, 24Ur < 5 ug/24 hr (0-20); Epinephrine, Ur < 3 ug/L (Undefined); Norepinephrine, 24Ur 30 ug/24 hr (0-135); Norepinephrine, Ur 17 ug/L (Undefined)
== END | disposition home or self-care (01) ==
LOC: LAB.FUTURE 08:27 → LABSPEC 08:29
PROVIDERS: PCP Family Medicine; Visit Provider Family Medicine
DX: D49.7 Neoplasm of unspecified behavior of endocrine glands and other parts of nervous system (principal); R74.8 Abnormal levels of other serum enzymes
CPT/HCPCS: 82384

== ENCOUNTER → 2024-03-02 | Outpatient (CLI) | payer MEDICARE, OTHER, SELFPAY ==
[2024-03-02 11:57] LABS: 24HR. Urine Creatinine 0.74 g/24 HR (0.70-1.90)
[2024-03-06 18:08] LABS: Metanephrine, Ur 30 ug/L (Undefined); Metanephrines, 24Ur 75 ug/24 hr (36-209); Normetanephrines, 24Ur 250 ug/24 hr (131-612); Normetanephrines, Ur 100 ug/L (Undefined)
== END | disposition home or self-care (01) ==
LOC: LABSPEC 08:06
PROVIDERS: PCP Family Medicine; Referring Provider Family Medicine; Visit Provider Family Medicine
DX: D49.7 Neoplasm of unspecified behavior of endocrine glands and other parts of nervous system (principal); R74.8 Abnormal levels of other serum enzymes
CPT/HCPCS: 81050; 82570; 83835

== ENCOUNTER → 2024-06-06 | Outpatient (CLI) | payer MEDICARE, OTHER, SELFPAY ==
[2024-06-06 13:18] LABS: Absolute Lymphocyte Count 1.29 X10^3/uL (0.83-4.51); Absolute Neutrophil Count 2.3 X10^3/uL (2.0-7.7); Basophil# 0.04 X10^3/uL; Eosinophil# 0.07 X10^3/uL; Eosinophils% 1.7 % (0-5); Hematocrit 39.6 % (37-47); Hemoglobin 12.7 g/dL (12.0-15.0); Lymphocyte # 1.29 X10^3/ul (0.83-4.51); Lymphocyte % 30.6 % (19-41); Mean Corp Hgb Conc 32.1 g/dL (32-36); Mean Corpuscular Hgb 28.5 pg (27.0-32.0); Mean Platelet Vol. 10.1 fl (6.2-12.0); Monocyte# 0.49 X10^3/uL; Monocyte% 11.6 % (0-10); NRBC Flagged by Analyzer 0 % (0-5); Neutrophil # 2.31 X10^3/uL (2.7-7.7); Neutrophil % 54.9 % (47-70); Platelet Count 274 K/mm3 (150-450); RBC Distribution Width CV 12.6 % (11.6-14.6); RBC Distribution Width SD 41.4 fl (35.1-43.9); Red Blood Count 4.45 M/mm3 (4.2-5.4); White Blood Count 4.2 K/mm3 (4.4-11.0)
[2024-06-06 13:51] LABS: ALB/GLOB Ratio 1.3 RATIO (0.9-2.4); AST(SGOT) 40 U/L (15-37); Alanine Aminotransfer ALT/SGPT 39 U/L (13-56); Albumin, Serum 3.9 g/dL (3.2-5.0); Alkaline Phosphatase 96 U/L (45-117); Anion Gap 6 (5-15); BUN 19 mg/dL (7-18); BUN/Creat Ratio 27.3 RATIO (10-20); Bilirubin, Direct 0.13 mg/dL (0.00-0.30); Calcium,Total 9.1 mg/dL (8.5-10.1); Chloride 105 mmol/L (98-107); EST Glomerular Filtration Rate 87 mL/min (>60); Est Glom Filt Rate - Afr Amer 106 mL/min (>60); Ferritin 97 ng/mL (8-252); Free T3 2.4 pg/mL (2.18-3.98); Globulin 3.1 g/dL (2.2-4.2); Glucose 93 mg/dL (74-106); Iron 70 ug/dL (50-170); Potassium 3.3 mmol/L (3.5-5.1); Sodium Level 140 mmol/L (136-145); T4 Free Direct 1.05 ng/dL (0.76-1.46)
[2024-06-06 13:54] LABS: Hemoglobin A1c 5.3 % (3.8-5.6)
== END | disposition home or self-care (01) ==
PROVIDERS: PCP Family Medicine; Referring Provider Family Medicine; Visit Provider Family Medicine
DX: Z51.81 Encounter for therapeutic drug level monitoring (principal); E03.9 Hypothyroidism, unspecified; R73.01 Impaired fasting glucose; R79.89 Other specified abnormal findings of blood chemistry
CPT/HCPCS: 36415; 80053; 82248; 82728; 83036; 83540; 84439; 84443; 84481; 85025

== ENCOUNTER 2024-06-13 11:07 | Outpatient (CLI) | payer MEDICARE, OTHER, SELFPAY ==
[2024-06-13 11:22] VITALS: BP 156/91; PULSE 61; RESP 16; TEMP 36; O2SAT 98; BMI 25.1
[2024-06-13] MEDS: DENOSUMAB 60 MG/ML SC (11:26)
== END 2024-06-13 23:59 | disposition home or self-care (01) ==
LOC: MEDOUTP 11:07
PROVIDERS: PCP Family Medicine; Referring Provider Family Medicine; Visit Provider Family Medicine
DX: M81.0 Age-related osteoporosis without current pathological fracture (principal)
CPT/HCPCS: 96372; J0897

== ENCOUNTER → 2024-06-26 | Outpatient (CLI) | payer MEDICARE, OTHER, SELFPAY ==
[2024-06-26 17:34] LABS: Magnesium 2.1 mg/dL (1.6-2.6)
[2024-06-26 17:45] LABS: Vitamin B12 525 pg/mL (211-911); Vitamin D,25 Hydroxy 46.9 ng/mL
== END | disposition home or self-care (01) ==
PROVIDERS: PCP Family Medicine; Referring Provider Family Medicine; Visit Provider Family Medicine
DX: E55.9 Vitamin D deficiency, unspecified (principal); R25.2 Cramp and spasm
CPT/HCPCS: 36415; 82306; 82607; 83735

== ENCOUNTER → 2024-07-18 | Outpatient (CLI) | payer MEDICARE, OTHER, SELFPAY ==
--- NOTE | 2024-07-18 12:04 | BI_ITS ---
MAMMOGRAPHY - BILATERAL SCREENING REASON FOR EXAM: Female, 74 years old. Routine annual screening examination. PERTINENT HISTORY: Non-contributory. Remote stereotactic breast biopsy. TECHNIQUE: Digital bilateral breast kimi (3D mammographic acquisition) in the CC and MLO projections. 2-D mediolateral oblique (MLO) and craniocaudad (CC) views of both breasts were obtained. CAD: Full Field Digital Mammography with Computer Added Detection was performed. COMPARISON: Comparison is made with prior study July 19, 2022 and July 14, 2021. FINDINGS: Breast Composition: The breasts are heterogeneously dense, which may obscure small masses. There are no dominant masses or suspicious calcifications. No other significant abnormalities are identified. There has been no significant change since the prior study. BI/SCRN MAMM (CAD)W/KIMI BILAT IMPRESSION: Stable bilateral screening mammogram. Yearly follow-up mammogram recommended. (A) ASSESSMENT CATEGORY: BIRADS Category 1: Negative. A letter regarding these results will be sent to the patient by the facility within 30 days. Approximately 10% of breast cancers are not detected by mammography. A normal mammogram should not delay biopsy of a clinically suspicious abnormality. [id number] Electronically Signed: Dariusz Howard MD at 12:27 EDT ,
== END | disposition home or self-care (01) ==
LOC: OPBI 12:03
PROVIDERS: PCP Family Medicine; Referring Provider Family Medicine; Visit Provider Family Medicine
DX: Z12.31 Encounter for screening mammogram for malignant neoplasm of breast (principal)
CPT/HCPCS: 77063; 77067

== ENCOUNTER → 2024-08-26 | Outpatient (CLI) | payer MEDICARE, OTHER, SELFPAY | END | disposition home or self-care (01) | LOC: LAB.FUTURE 13:18 | PROVIDERS: PCP Family Medicine; Visit Provider Family Medicine | DX: R19.7 Diarrhea, unspecified (principal) | CPT/HCPCS: 87493; 87506 ==

== ENCOUNTER → 2025-01-16 | Outpatient (CLI) | payer MEDICARE, OTHER, SELFPAY ==
[2025-01-16 19:52] LABS: ALB/GLOB Ratio 1.9 RATIO (0.9-2.4); AST(SGOT) 38 U/L (<=31); Alanine Aminotransfer ALT/SGPT 37 U/L (<=34); Albumin, Serum 4.2 g/dL (3.4-4.8); Alkaline Phosphatase 89 U/L (35-104); Anion Gap 12 (5-15); BUN 17 mg/dL (4-19); BUN/Creat Ratio 23.5 RATIO (10-20); Calcium,Total 9.4 mg/dL (7.6-11.0); Carbon Dioxide 24.6 mmol/L (21.0-32.0); Chloride 104 mmol/L (98-108); Creatinine, Serum 0.73 mg/dL (0.70-1.20); EST Glomerular Filtration Rate 85 (>60); Globulin 2.2 g/dL (2.2-4.2); Glucose 91 mg/dL (70-99); Potassium 3.7 mmol/L (3.3-5.1); Protein, Total 6.4 g/dL (5.9-8.4); Sodium Level 140 mmol/L (133-145); Total Bilirubin 0.26 mg/dL (0.00-1.30)
== END | disposition home or self-care (01) ==
LOC: LAB 15:04
PROVIDERS: PCP Family Medicine; Referring Provider Family Medicine; Visit Provider Family Medicine
DX: E87.6 Hypokalemia (principal)
CPT/HCPCS: 36415; 80053